=== PATIENT | female | born 1980 | race African-American/Black ===

== ENCOUNTER 2018-05-29 21:51 | Inpatient (IN) ==
[2018-05-29] MEDS ORDERED: hydrALAZINE 20 MG/1 ML VIAL IV STA (22:39)
[2018-05-29] MEDS ORDERED: LABETALOL 20 MG/4 ML SYRINGE IV STA ×2 (22:40→23:27)
[2018-05-29] MEDS ORDERED: LABETALOL 100 MG/20 ML VIAL IV ONE (22:43)
[2018-05-29 22:54] LABS: Basophils # 0.1 10*3/uL (0.0-0.2); Basophils % 0.9 % (0.0-0.8); Eosinophils # 0.3 10*3/uL (0.0-0.87); Hematocrit 40.6 VOL% (35.7-47.0); Hemoglobin 13.5 GM/DL (12.0-16.0); Immature Granulocytes % 0.5 %; Immature Granulocytes Absolute 0.05 #; Lymphocytes # 3.5 10*3/uL (1.4-4.0); Lymphocytes % 32.9 % (21.3-54.2); Mean Corpuscular HGB Conc 33.3 GM/DL (32-36); Mean Corpuscular Hemoglobin 30 PG (27-34); Mean Corpuscular Volume 91.2 FL (87-102); Mean Platelet Volume 11.8 FL (9.6-12.0); Monocytes # 1.1 10*3/uL (0.11-0.8); Monocytes % 10.5 % (1.7-12.7); Neutrophils # 5.5 10*3/uL (1.4-7.4); Neutrophils % 52.2 % (38.7-73.9); Platelet Count 212 T/CUMM (130-400); Red Blood Count 4.45 MC/CUMM (3.8-5.5); White Blood Count 10.5 T/CUMM (4-12)
[2018-05-29 23:07] LABS: PT Patient Result 10.6 SECS
[2018-05-29 23:12] LABS: Albumin 3.7 G/DL (3.4-5.0); Bilirubin,Total 0.6 MG/DL (0.2-1.0); Calcium 8.6 MG/DL (8.5-10.1); Osmolality,Calculated 281.3 MOS/KG (273-304); Potassium 3.1 MMOL/L (3.5-5.1); Total Protein 7.6 G/DL (6.4-8.3)
[2018-05-29] MEDS ORDERED: ONDANSETRON 4 MG/2 ML VIAL IV STA (23:29)
[2018-05-29] MEDS ORDERED: MORPHINE 4 MG/1 ML VIAL IV STA (23:29)
[2018-05-30] MEDS ORDERED: niCARdipine 25 MG/10 ML VIAL IV ONE (00:05)
[2018-05-30] MEDS: niCARdipine INJ 25 MG in SODIUM CHLORIDE 0.9% 240 ML IV PRN ×3 (00:25→06:57)
[2018-05-30] MEDS ORDERED: ONDANSETRON 4 MG/2 ML VIAL IV PRN (01:15)
[2018-05-30] MEDS ORDERED: FUROSEMIDE 40 MG/4 ML VIAL IV STA (01:37)
[2018-05-30 04:25] LABS: Basophils # 0.1 10*3/uL (0.0-0.2); Basophils % 0.5 % (0.0-0.8); Eosinophils % 0.3 % (0.00-10.9); Hematocrit 42.1 VOL% (35.7-47.0); Hemoglobin 13.8 GM/DL (12.0-16.0); Immature Granulocytes % 0.4 %; Immature Granulocytes Absolute 0.04 #; Lymphocytes # 1.8 10*3/uL (1.4-4.0); Lymphocytes % 17.1 % (21.3-54.2); Mean Corpuscular HGB Conc 32.8 GM/DL (32-36); Mean Corpuscular Hemoglobin 30 PG (27-34); Mean Corpuscular Volume 92.7 FL (87-102); Mean Platelet Volume 11.7 FL (9.6-12.0); Monocytes # 0.5 10*3/uL (0.11-0.8); Monocytes % 4.9 % (1.7-12.7); Neutrophils # 8.3 10*3/uL (1.4-7.4); Neutrophils % 76.8 % (38.7-73.9); Platelet Count 202 T/CUMM (130-400); Red Blood Count 4.54 MC/CUMM (3.8-5.5); White Blood Count 10.8 T/CUMM (4-12)
[2018-05-30 04:42] LABS: Calcium 8.5 MG/DL (8.5-10.1); Osmolality,Calculated 282.5 MOS/KG (273-304); Potassium 3.5 MMOL/L (3.5-5.1)
[2018-05-30] MEDS ORDERED: LABETALOL 200 MG TABLET PO SCH (09:00)
[2018-05-30] MEDS ORDERED: FUROSEMIDE 40 MG TABLET PO SCH (09:00)
[2018-05-30] MEDS ORDERED: POTASSIUM CHLORIDE 10 MEQ TABLET PO SCH (09:00)
[2018-05-30] MEDS ORDERED: hydrALAZINE 25 MG TABLET PO SCH (09:00)
[2018-05-30] MEDS: POTASSIUM CHLORIDE 20 MEQ TABLET PO SCH (09:26)
[2018-05-30] MEDS: PANTOPRAZOLE 40 MG TABLET PO SCH (09:27)
[2018-05-30] MEDS: amLODIPine 10 MG TABLET PO SCH (09:27)
[2018-05-30] MEDS: ISOSORBIDE MONONITRATE 30 MG TABLET PO SCH (09:28)
[2018-05-30] MEDS: FUROSEMIDE 40 MG/4 ML VIAL IV SCH (09:28)
[2018-05-30] MEDS: OXYMETAZOLINE 0.05% NASAL SPRAY 15 ML BOTTLE BOTH NARES PRN ×2 (11:53→20:20)
[2018-05-30] MEDS: CARVEDILOL 3.125 MG TABLET PO SCH ×2 (15:56→20:20)
[2018-05-30] MEDS: MUPIROCIN 2% OINT 22 GM TUBE TOP SCH (20:20)
[2018-05-30] MEDS ORDERED: hydrALAZINE 20 MG/1 ML VIAL IV PRN (21:54)
[2018-05-30] MEDS: CARVEDILOL 25 MG TABLET PO SCH (22:13)
[2018-05-31] MEDS ORDERED: cloNIDine 0.1 MG TABLET PO PRN (02:20)
[2018-05-31 04:27] LABS: Calcium 8.1 MG/DL (8.5-10.1); Osmolality,Calculated 277.7 MOS/KG (273-304); Potassium 3.7 MMOL/L (3.5-5.1)
[2018-05-31] MEDS: amLODIPine 10 MG TABLET PO SCH (08:49)
[2018-05-31] MEDS: CARVEDILOL 25 MG TABLET PO SCH ×2 (08:49→21:43)
[2018-05-31] MEDS: PANTOPRAZOLE 40 MG TABLET PO SCH (08:50)
[2018-05-31] MEDS: POTASSIUM CHLORIDE 20 MEQ TABLET PO SCH (08:51)
[2018-05-31] MEDS: ISOSORBIDE MONONITRATE 30 MG TABLET PO SCH (08:51)
[2018-05-31] MEDS: MUPIROCIN 2% OINT 22 GM TUBE TOP SCH ×2 (08:55→21:43)
[2018-05-31] MEDS: FUROSEMIDE 40 MG/4 ML VIAL IV SCH (08:56)
[2018-05-31] MEDS ORDERED: ALBUTEROL/IPRATROPIUM 3 ML NEB RESP TX PRN (16:38)
[2018-06-01 05:27] LABS: Basophils # 0.1 10*3/uL (0.0-0.2); Basophils % 0.5 % (0.0-0.8); Eosinophils # 0.3 10*3/uL (0.0-0.87); Eosinophils % 2.5 % (0.00-10.9); Hematocrit 36.1 VOL% (35.7-47.0); Hemoglobin 11.7 GM/DL (12.0-16.0); Immature Granulocytes % 0.5 %; Immature Granulocytes Absolute 0.05 #; Lymphocytes # 2.7 10*3/uL (1.4-4.0); Lymphocytes % 23.9 % (21.3-54.2); Mean Corpuscular HGB Conc 32.4 GM/DL (32-36); Mean Corpuscular Hemoglobin 31 PG (27-34); Mean Corpuscular Volume 95.5 FL (87-102); Mean Platelet Volume 11.8 FL (9.6-12.0); Monocytes # 0.9 10*3/uL (0.11-0.8); Monocytes % 8.2 % (1.7-12.7); Neutrophils # 7.2 10*3/uL (1.4-7.4); Neutrophils % 64.4 % (38.7-73.9); Platelet Count 184 T/CUMM (130-400); Red Blood Count 3.78 MC/CUMM (3.8-5.5); Red Cell Distribution Width 13.9 % (9.3-17.3); White Blood Count 11.1 T/CUMM (4-12)
[2018-06-01 06:20] LABS: Risk Ratio 4.39; VLDL CHOLESTEROL 28.8 MG/DL
[2018-06-01 06:22] LABS: Calcium 8.4 MG/DL (8.5-10.1)
[2018-06-01 06:23] LABS: Osmolality,Calculated 279.5 MOS/KG (273-304); Potassium 3.1 MMOL/L (3.5-5.1)
[2018-06-01] MEDS: PANTOPRAZOLE 40 MG TABLET PO SCH (09:20)
[2018-06-01] MEDS: ISOSORBIDE MONONITRATE 30 MG TABLET PO SCH (09:20)
[2018-06-01] MEDS: CARVEDILOL 25 MG TABLET PO SCH ×2 (09:20→21:46)
[2018-06-01] MEDS: POTASSIUM CHLORIDE 20 MEQ TABLET PO SCH (09:21)
[2018-06-01] MEDS: MUPIROCIN 2% OINT 22 GM TUBE TOP SCH ×2 (09:21→22:09)
[2018-06-01] MEDS: amLODIPine 10 MG TABLET PO SCH (09:21)
[2018-06-01] MEDS: FUROSEMIDE 40 MG/4 ML VIAL IV SCH (09:21)
[2018-06-01] MEDS: SPIRONOLACTONE 25 MG TABLET PO SCH ×2 (13:32→21:46)
[2018-06-01] MEDS ORDERED: POTASSIUM CHLORIDE 10 MEQ TABLET PO ONE (15:26)
[2018-06-02 05:12] LABS: Basophils # 0.1 10*3/uL (0.0-0.2); Basophils % 0.6 % (0.0-0.8); Eosinophils % 0.3 % (0.00-10.9); Hematocrit 37.1 VOL% (35.7-47.0); Hemoglobin 12.2 GM/DL (12.0-16.0); Immature Granulocytes % 0.5 %; Immature Granulocytes Absolute 0.06 #; Lymphocytes # 2.9 10*3/uL (1.4-4.0); Lymphocytes % 25.6 % (21.3-54.2); Mean Corpuscular HGB Conc 32.9 GM/DL (32-36); Mean Corpuscular Hemoglobin 31 PG (27-34); Mean Corpuscular Volume 93.9 FL (87-102); Mean Platelet Volume 11.6 FL (9.6-12.0); Monocytes % 8.6 % (1.7-12.7); Neutrophils # 7.4 10*3/uL (1.4-7.4); Neutrophils % 64.4 % (38.7-73.9); Platelet Count 193 T/CUMM (130-400); Red Blood Count 3.95 MC/CUMM (3.8-5.5); Red Cell Distribution Width 13.7 % (9.3-17.3); White Blood Count 11.5 T/CUMM (4-12)
[2018-06-02 05:45] LABS: Calcium 8.8 MG/DL (8.5-10.1); Osmolality,Calculated 280.4 MOS/KG (273-304); Potassium 3.4 MMOL/L (3.5-5.1)
[2018-06-02] MEDS: CARVEDILOL 25 MG TABLET PO SCH ×2 (08:42→21:22)
[2018-06-02] MEDS: POTASSIUM CHLORIDE 20 MEQ TABLET PO SCH (08:43)
[2018-06-02] MEDS: PANTOPRAZOLE 40 MG TABLET PO SCH (08:43)
[2018-06-02] MEDS: SPIRONOLACTONE 25 MG TABLET PO SCH ×2 (08:43→21:22)
[2018-06-02] MEDS: amLODIPine 10 MG TABLET PO SCH (08:43)
[2018-06-02] MEDS: FUROSEMIDE 40 MG/4 ML VIAL IV SCH (08:43)
[2018-06-02] MEDS: ISOSORBIDE MONONITRATE 30 MG TABLET PO SCH (08:43)
[2018-06-02] MEDS: MUPIROCIN 2% OINT 22 GM TUBE TOP SCH ×2 (12:33→21:23)
[2018-06-02 13:44] LABS: Apearance,Urine CLEAR (Clear); Bilirubin,Urine Negative (Negative); Blood, Urine Negative (Negative); Glucose,Urine (UA) Negative (Negative); Ketones,Urine Negative (Negative); Mucus,Urine Occasional /LPF (Occasional); Nitrite,Urine Negative (Negative); Protein,Urine Negative; RBC,Urine <1 /HPF (0-4); Squamous Epithelial Cell,Urine Occasional /HPF (0-10); Urine Color Straw (Yellow); Urine Specific Gravity 1.004 (1.001-1.035); Urine Urobilinogen < 2.0 EU/DL (0.2-1.0); WBC,Urine 3 /HPF (0-6)
[2018-06-02] MEDS: cloNIDine 0.1 MG TABLET PO SCH ×2 (14:00→21:22)
[2018-06-02 14:04] LABS: ABG Base Excess 4.4 MMOL/L (-2.5-2.5); ABG HCO3 28.2 MMOL/L (20-26); ABG Oxygen Saturation 94.9 % (95-100); ABG PCO2 38.5 MM HG (35-48); ABG PH 7.472 (7.35-7.45); ABG PO2 71.6 MM HG (80-95); ABG TCO2 24.6 MMOL/L (23-27); Allen Test Positive; Pt O2 Delivery Device Room Air
[2018-06-03 04:30] LABS: Basophils # 0.1 10*3/uL (0.0-0.2); Basophils % 0.6 % (0.0-0.8); Eosinophils # 0.3 10*3/uL (0.0-0.87); Eosinophils % 2.8 % (0.00-10.9); Hematocrit 36.1 VOL% (35.7-47.0); Hemoglobin 11.8 GM/DL (12.0-16.0); Immature Granulocytes % 0.5 %; Immature Granulocytes Absolute 0.05 #; Lymphocytes # 2.4 10*3/uL (1.4-4.0); Lymphocytes % 22.7 % (21.3-54.2); Mean Corpuscular HGB Conc 32.7 GM/DL (32-36); Mean Corpuscular Hemoglobin 30 PG (27-34); Mean Corpuscular Volume 92.1 FL (87-102); Mean Platelet Volume 11.8 FL (9.6-12.0); Monocytes % 9.9 % (1.7-12.7); Neutrophils # 6.7 10*3/uL (1.4-7.4); Neutrophils % 63.5 % (38.7-73.9); Platelet Count 216 T/CUMM (130-400); Red Blood Count 3.92 MC/CUMM (3.8-5.5); Red Cell Distribution Width 13.8 % (9.3-17.3); White Blood Count 10.5 T/CUMM (4-12)
[2018-06-03 04:48] LABS: Calcium 8.2 MG/DL (8.5-10.1); Osmolality,Calculated 282.4 MOS/KG (273-304); Potassium 3.5 MMOL/L (3.5-5.1)
[2018-06-03] MEDS: SPIRONOLACTONE 25 MG TABLET PO SCH ×2 (10:04→21:45)
[2018-06-03] MEDS: ISOSORBIDE MONONITRATE 30 MG TABLET PO SCH (10:04)
[2018-06-03] MEDS: PANTOPRAZOLE 40 MG TABLET PO SCH (10:04)
[2018-06-03] MEDS: CARVEDILOL 25 MG TABLET PO SCH ×2 (10:05→21:45)
[2018-06-03] MEDS: MUPIROCIN 2% OINT 22 GM TUBE TOP SCH ×2 (10:05→21:46)
[2018-06-03] MEDS: cloNIDine 0.1 MG TABLET PO SCH (10:05)
[2018-06-03] MEDS: POTASSIUM CHLORIDE 20 MEQ TABLET PO SCH (10:05)
[2018-06-03] MEDS: FUROSEMIDE 40 MG/4 ML VIAL IV SCH (10:05)
[2018-06-03] MEDS: amLODIPine 10 MG TABLET PO SCH (10:05)
[2018-06-03] MEDS: hydroCHLOROthiazide 25 MG TABLET PO SCH (12:38)
[2018-06-04 03:41] LABS: Basophils # 0.1 10*3/uL (0.0-0.2); Basophils % 0.6 % (0.0-0.8); Eosinophils # 0.2 10*3/uL (0.0-0.87); Eosinophils % 2.4 % (0.00-10.9); Hematocrit 38.2 VOL% (35.7-47.0); Hemoglobin 12.6 GM/DL (12.0-16.0); Immature Granulocytes % 0.5 %; Immature Granulocytes Absolute 0.05 #; Lymphocytes # 2.4 10*3/uL (1.4-4.0); Mean Corpuscular Hemoglobin 30 PG (27-34); Mean Corpuscular Volume 91.2 FL (87-102); Mean Platelet Volume 11.8 FL (9.6-12.0); Monocytes # 0.9 10*3/uL (0.11-0.8); Monocytes % 9.1 % (1.7-12.7); Neutrophils # 6.3 10*3/uL (1.4-7.4); Neutrophils % 63.4 % (38.7-73.9); Platelet Count 236 T/CUMM (130-400); Red Blood Count 4.19 MC/CUMM (3.8-5.5); Red Cell Distribution Width 13.7 % (9.3-17.3); White Blood Count 9.9 T/CUMM (4-12)
[2018-06-04 04:27] LABS: Calcium 8.8 MG/DL (8.5-10.1); Osmolality,Calculated 278.8 MOS/KG (273-304); Potassium 3.9 MMOL/L (3.5-5.1)
[2018-06-04] MEDS: FUROSEMIDE 40 MG TABLET PO SCH (08:53)
[2018-06-04] MEDS: hydroCHLOROthiazide 25 MG TABLET PO SCH (08:53)
[2018-06-04] MEDS: POTASSIUM CHLORIDE 20 MEQ TABLET PO SCH (08:53)
[2018-06-04] MEDS: PANTOPRAZOLE 40 MG TABLET PO SCH (08:53)
[2018-06-04] MEDS: amLODIPine 10 MG TABLET PO SCH (08:53)
[2018-06-04] MEDS: CARVEDILOL 25 MG TABLET PO SCH ×2 (08:53→20:38)
[2018-06-04] MEDS: SPIRONOLACTONE 25 MG TABLET PO SCH ×2 (08:53→20:38)
[2018-06-04] MEDS: MUPIROCIN 2% OINT 22 GM TUBE TOP SCH ×2 (08:57→20:38)
[2018-06-05 05:06] LABS: Bilirubin,Total 0.7 MG/DL (0.2-1.0); Osmolality,Calculated 280.7 MOS/KG (273-304); Potassium 3.6 MMOL/L (3.5-5.1)
[2018-06-05] MEDS: SPIRONOLACTONE 25 MG TABLET PO SCH (09:11)
[2018-06-05] MEDS: hydroCHLOROthiazide 25 MG TABLET PO SCH (09:12)
[2018-06-05] MEDS: CARVEDILOL 25 MG TABLET PO SCH (09:12)
[2018-06-05] MEDS: PANTOPRAZOLE 40 MG TABLET PO SCH (09:12)
[2018-06-05] MEDS: FUROSEMIDE 40 MG TABLET PO SCH (09:12)
[2018-06-05] MEDS: amLODIPine 10 MG TABLET PO SCH (09:12)
[2018-06-05] MEDS: POTASSIUM CHLORIDE 20 MEQ TABLET PO SCH (09:12)
[2018-06-05] MEDS: MUPIROCIN 2% OINT 22 GM TUBE TOP SCH (09:12)
[2018-06-05 11:58] VITALS: BP 123/77
== END 2018-06-05 15:13 | disposition home or self-care (01) | DRG 304 ==
LOC: N.ED 21:51 → SUATTDRO 05-30 01:15 → N.EDINP 05-30 01:15 → N.CC 05-30 02:14 → N.TELEN 05-31 10:52
PROVIDERS: ADMIT Internal Medicine; ATTEND Internal Medicine

== ENCOUNTER 2018-09-20 19:59 | Inpatient (IN) ==
[2018-09-20] MEDS ORDERED: ONDANSETRON 4 MG/2 ML VIAL IV STA (20:52)
[2018-09-20] MEDS ORDERED: methylPREDNISolone SOD SUC 125 MG/2 ML VIAL IV STA (20:52)
[2018-09-20] MEDS ORDERED: cefTRIAXone 1,000 MG in SODIUM CHLORIDE 0.9% 100 ML IV STA (20:52)
[2018-09-20] MEDS ORDERED: ALBUTEROL/IPRATROPIUM 3 ML NEB RESP TX STA (20:52)
[2018-09-20] MEDS ORDERED: hydrALAZINE 20 MG/1 ML VIAL IV STA (21:53)
[2018-09-20] MEDS ORDERED: hydrALAZINE 20 MG/1 ML VIAL ONE (21:53)
[2018-09-20 22:07] LABS: Basophils # 0.1 10*3/uL (0.0-0.2); Basophils % 0.7 % (0.0-0.8); Eosinophils # 0.2 10*3/uL (0.0-0.87); Hematocrit 42.4 VOL% (35.7-47.0); Hemoglobin 13.5 GM/DL (12.0-16.0); Immature Granulocytes % 0.5 %; Immature Granulocytes Absolute 0.05 #; Lymphocytes # 2.8 10*3/uL (1.4-4.0); Mean Corpuscular HGB Conc 31.8 GM/DL (32-36); Mean Corpuscular Hemoglobin 30 PG (27-34); Mean Corpuscular Volume 92.6 FL (87-102); Mean Platelet Volume 11.6 FL (9.6-12.0); Monocytes # 0.9 10*3/uL (0.11-0.8); Monocytes % 9.1 % (1.7-12.7); Neutrophils # 5.5 10*3/uL (1.4-7.4); Neutrophils % 57.7 % (38.7-73.9); Platelet Count 231 T/CUMM (130-400); Red Blood Count 4.58 MC/CUMM (3.8-5.5); Red Cell Distribution Width 14.4 % (9.3-17.3); White Blood Count 9.5 T/CUMM (4-12)
[2018-09-20 22:26] LABS: INR 0.9; PT Patient Result 10.3 SECS
[2018-09-20 22:28] LABS: Alanine Aminotransferase 14 U/L (13-56); Albumin 3.1 G/DL (3.4-5.0); Alkaline Phosphatase 106 U/L (45-117); Aspartate Amino Transferase 11 U/L (0-37); Bilirubin,Total < 0.39 MG/DL (0.2-1.0); Blood Urea Nitrogen 14 MG/DL (7-18); Calcium 8.3 MG/DL (8.5-10.1); Glucose 107 MG/DL (74-106); Osmolality,Calculated 279.4 MOS/KG (273-304); Potassium 3.7 MMOL/L (3.5-5.1); Sodium 140 MMOL/L (136-145); Total Protein 7.5 G/DL (6.4-8.3)
[2018-09-20] MEDS ORDERED: METOPROLOL TARTRATE 5 MG/5 ML VIAL IV STA (23:04)
[2018-09-20] MEDS ORDERED: cloNIDine 0.1 MG TABLET ONE (23:57)
[2018-09-20] MEDS ORDERED: cloNIDine 0.1 MG TABLET PO STA (23:59)
[2018-09-21 00:20] LABS: Barbiturates Screen,Urine Negative (Negative); Benzodiazepines Screen,Urine Negative (Negative); Cannabinoid Screen,Urine Negative (Negative); Opiate Screen,Urine Negative (Negative); Phencyclidine Screen,Urine Negative (Negative)
[2018-09-21 00:24] LABS: Apearance,Urine CLEAR (Clear); Bilirubin,Urine Negative (Negative); Blood, Urine Negative (Negative); Glucose,Urine (UA) 50 mg/dL (Negative); Hyaline Casts,Urine 1 /LPF (0-3); Ketones,Urine Negative (Negative); Mucus,Urine Occasional /LPF (Occasional); Nitrite,Urine Negative (Negative); Protein,Urine Negative; RBC,Urine 1 /HPF (0-4); Squamous Epithelial Cell,Urine Occasional /HPF (0-10); Urine Color Yellow (Yellow); Urine Specific Gravity 1.019 (1.001-1.035); WBC,Urine 1 /HPF (0-6)
[2018-09-21] MEDS ORDERED: niCARdipine INJ 25 MG in SODIUM CHLORIDE 0.9% 240 ML IV PRN (01:35)
[2018-09-21] MEDS ORDERED: niCARdipine 25 MG/10 ML VIAL IV ONE (01:40)
[2018-09-21] MEDS: niCARdipine INJ 25 MG in SODIUM CHLORIDE 0.9% 240 ML IV PRN ×6 (01:49→22:05)
[2018-09-21] MEDS ORDERED: NICOTINE 21 MG/24 HR PATCH TRANSDERM PRN (04:17)
[2018-09-21] MEDS ORDERED: ACETAMINOPHEN 325 MG TABLET PO PRN (04:17)
[2018-09-21] MEDS ORDERED: BISACODYL 5 MG TABLET PO PRN (04:17)
[2018-09-21] MEDS ORDERED: MORPHINE 4 MG/1 ML VIAL IV PRN (04:17)
[2018-09-21] MEDS ORDERED: ONDANSETRON 4 MG/2 ML VIAL IV PRN (04:17)
[2018-09-21] MEDS ORDERED: diphenhydrAMINE CAP 25 MG CAPSULE PO PRN (04:17)
[2018-09-21 04:52] LABS: Risk Ratio 5.06; Thyroid Stimulating Hormone 0.564 uIU/ml (0.358-3.74); VLDL CHOLESTEROL 38.8 MG/DL
[2018-09-21] MEDS ORDERED: PANTOPRAZOLE 40 MG VIAL IV SCH (09:00)
[2018-09-21] MEDS ORDERED: ASPIRIN 325 MG TABLET PO SCH (09:00)
[2018-09-21] MEDS ORDERED: FUROSEMIDE 40 MG/4 ML VIAL IV SCH (09:00)
[2018-09-21] MEDS ORDERED: cloNIDine 0.3 MG/24 HR PATCH TRANSDERM SCH (09:00)
[2018-09-21] MEDS: ASPIRIN CHEW 81 MG TABLET PO SCH (09:10)
[2018-09-21] MEDS: ATORVASTATIN 40 MG TABLET PO SCH (09:10)
[2018-09-21] MEDS: ENOXAPARIN 40 MG/0.4 ML SYRINGE SUBCUT SCH (09:11)
[2018-09-21] MEDS: POTASSIUM CHLORIDE 10 MEQ TABLET PO SCH (14:03)
[2018-09-21] MEDS: amLODIPine 10 MG TABLET PO SCH (14:03)
[2018-09-21] MEDS: CARVEDILOL 25 MG TABLET PO SCH ×2 (14:03→21:39)
[2018-09-21] MEDS: FUROSEMIDE 40 MG TABLET PO SCH (14:03)
[2018-09-22] MEDS: niCARdipine INJ 25 MG in SODIUM CHLORIDE 0.9% 240 ML IV PRN (01:25)
[2018-09-22] MEDS: niCARdipine INJ 50 MG in SODIUM CHLORIDE 0.9% 480 ML IV PRN ×3 (04:45→19:42)
[2018-09-22 05:56] LABS: Basophils # 0.1 10*3/uL (0.0-0.2); Basophils % 0.3 % (0.0-0.8); Eosinophils % 0.2 % (0.00-10.9); Hematocrit 42.5 VOL% (35.7-47.0); Hemoglobin 13.4 GM/DL (12.0-16.0); Immature Granulocytes % 0.7 %; Immature Granulocytes Absolute 0.13 #; Lymphocytes # 3.7 10*3/uL (1.4-4.0); Lymphocytes % 20.7 % (21.3-54.2); Mean Corpuscular HGB Conc 31.5 GM/DL (32-36); Mean Corpuscular Hemoglobin 29 PG (27-34); Mean Corpuscular Volume 91.8 FL (87-102); Monocytes # 1.1 10*3/uL (0.11-0.8); Monocytes % 6.1 % (1.7-12.7); Neutrophils # 12.8 10*3/uL (1.4-7.4); Platelet Count 245 T/CUMM (130-400); Red Blood Count 4.63 MC/CUMM (3.8-5.5); Red Cell Distribution Width 14.6 % (9.3-17.3); White Blood Count 17.8 T/CUMM (4-12)
[2018-09-22 06:18] LABS: Bilirubin,Total 0.5 MG/DL (0.2-1.0); Osmolality,Calculated 281.3 MOS/KG (273-304); Potassium 3.4 MMOL/L (3.5-5.1)
[2018-09-22] MEDS: FUROSEMIDE 40 MG TABLET PO SCH (08:55)
[2018-09-22] MEDS: ENOXAPARIN 40 MG/0.4 ML SYRINGE SUBCUT SCH (08:55)
[2018-09-22] MEDS: CARVEDILOL 25 MG TABLET PO SCH ×2 (08:55→20:57)
[2018-09-22] MEDS: POTASSIUM CHLORIDE 10 MEQ TABLET PO SCH (08:55)
[2018-09-22] MEDS: amLODIPine 10 MG TABLET PO SCH (08:55)
[2018-09-22] MEDS: ASPIRIN CHEW 81 MG TABLET PO SCH (08:56)
[2018-09-22] MEDS: ATORVASTATIN 40 MG TABLET PO SCH (08:56)
[2018-09-22] MEDS: SPIRONOLACTONE 25 MG TABLET PO SCH ×2 (09:01→21:01)
[2018-09-22] MEDS: PANTOPRAZOLE 40 MG TABLET PO SCH (09:01)
[2018-09-22] MEDS: POTASSIUM CHLORIDE 20 MEQ TABLET PO SCH ×3 (09:01→17:57)
[2018-09-23 04:57] LABS: Calcium 8.2 MG/DL (8.5-10.1); Osmolality,Calculated 278.5 MOS/KG (273-304); Potassium 3.9 MMOL/L (3.5-5.1)
[2018-09-23] MEDS: ATORVASTATIN 40 MG TABLET PO SCH (08:14)
[2018-09-23] MEDS: SPIRONOLACTONE 25 MG TABLET PO SCH ×3 (08:14→20:14)
[2018-09-23] MEDS: amLODIPine 10 MG TABLET PO SCH (08:15)
[2018-09-23] MEDS: FUROSEMIDE 40 MG TABLET PO SCH (08:16)
[2018-09-23] MEDS: CARVEDILOL 25 MG TABLET PO SCH ×2 (08:16→20:15)
[2018-09-23] MEDS: PANTOPRAZOLE 40 MG TABLET PO SCH (08:16)
[2018-09-23] MEDS: ASPIRIN CHEW 81 MG TABLET PO SCH (08:16)
[2018-09-23] MEDS: POTASSIUM CHLORIDE 10 MEQ TABLET PO SCH (08:16)
[2018-09-23] MEDS: ENOXAPARIN 40 MG/0.4 ML SYRINGE SUBCUT SCH (08:16)
[2018-09-23] MEDS ORDERED: niCARdipine INJ 50 MG in SODIUM CHLORIDE 0.9% 480 ML IV PRN (16:57)
[2018-09-23] MEDS: hydrALAZINE 20 MG/1 ML VIAL IV PRN (17:12)
[2018-09-24 03:13] LABS: Basophils # 0.1 10*3/uL (0.0-0.2); Basophils % 0.6 % (0.0-0.8); Eosinophils # 0.2 10*3/uL (0.0-0.87); Eosinophils % 2.3 % (0.00-10.9); Hematocrit 42.8 VOL% (35.7-47.0); Hemoglobin 13.7 GM/DL (12.0-16.0); Immature Granulocytes % 0.6 %; Immature Granulocytes Absolute 0.06 #; Lymphocytes % 29.2 % (21.3-54.2); Mean Corpuscular Hemoglobin 29 PG (27-34); Mean Corpuscular Volume 91.8 FL (87-102); Mean Platelet Volume 11.8 FL (9.6-12.0); Monocytes % 10.1 % (1.7-12.7); Neutrophils # 5.9 10*3/uL (1.4-7.4); Neutrophils % 57.2 % (38.7-73.9); Platelet Count 248 T/CUMM (130-400); Red Blood Count 4.66 MC/CUMM (3.8-5.5); Red Cell Distribution Width 14.6 % (9.3-17.3); White Blood Count 10.3 T/CUMM (4-12)
[2018-09-24 03:32] LABS: Calcium 8.1 MG/DL (8.5-10.1); Potassium 3.8 MMOL/L (3.5-5.1)
[2018-09-24] MEDS: hydrALAZINE 20 MG/1 ML VIAL IV PRN (04:26)
[2018-09-24] MEDS: SPIRONOLACTONE 25 MG TABLET PO SCH ×2 (08:27→20:40)
[2018-09-24] MEDS: ATORVASTATIN 40 MG TABLET PO SCH (08:28)
[2018-09-24] MEDS: ASPIRIN CHEW 81 MG TABLET PO SCH (08:28)
[2018-09-24] MEDS: CARVEDILOL 25 MG TABLET PO SCH ×2 (08:29→20:40)
[2018-09-24] MEDS: amLODIPine 10 MG TABLET PO SCH (08:29)
[2018-09-24] MEDS: PANTOPRAZOLE 40 MG TABLET PO SCH (08:30)
[2018-09-24] MEDS: ENOXAPARIN 40 MG/0.4 ML SYRINGE SUBCUT SCH (08:30)
[2018-09-24] MEDS ORDERED: GLUCAGON 1 MG VIAL IM PRN (09:32)
[2018-09-24] MEDS ORDERED: DEXTROSE 50% 25 GM/50 ML VIAL IV PRN (09:32)
[2018-09-24] MEDS: INSULIN LISPRO 100 UNIT/ML SUBCUT SCH ×3 (11:42→20:42)
[2018-09-24] MEDS: metFORMIN 500 MG TABLET PO SCH (16:54)
[2018-09-25 03:23] LABS: Calcium 8.5 MG/DL (8.5-10.1); Osmolality,Calculated 279.8 MOS/KG (273-304); Potassium 3.9 MMOL/L (3.5-5.1)
[2018-09-25] MEDS: INSULIN LISPRO 100 UNIT/ML SUBCUT SCH (07:45)
[2018-09-25] MEDS ORDERED: CLOPIDOGREL 75 MG TABLET PO SCH (09:00)
[2018-09-25] MEDS: metFORMIN 500 MG TABLET PO SCH (09:33)
[2018-09-25] MEDS: ASPIRIN CHEW 81 MG TABLET PO SCH (09:33)
[2018-09-25] MEDS: PANTOPRAZOLE 40 MG TABLET PO SCH (09:33)
[2018-09-25] MEDS: amLODIPine 10 MG TABLET PO SCH (09:33)
[2018-09-25] MEDS: CARVEDILOL 25 MG TABLET PO SCH (09:33)
[2018-09-25] MEDS: SPIRONOLACTONE 25 MG TABLET PO SCH (09:33)
[2018-09-25] MEDS: ATORVASTATIN 40 MG TABLET PO SCH (09:33)
[2018-09-25 11:06] VITALS: BP 148/86
== END 2018-09-25 10:46 | disposition home or self-care (01) | DRG 65 ==
LOC: N.ED 19:59 → N.EDINP 19:59 → N.ICU 09-21 04:36 → SUATTDRO 09-21 08:54 → N.4E 09-24 10:39
PROVIDERS: ADMIT Internal Medicine; ATTEND Internal Medicine Geriatric Medicine

== ENCOUNTER 2018-10-26 19:37 | Inpatient (IN) ==
[2018-10-26 20:07] LABS: Basophils # 0.1 10*3/uL (0.0-0.2); Basophils % 0.7 % (0.0-0.8); Eosinophils # 0.3 10*3/uL (0.0-0.87); Eosinophils % 2.6 % (0.00-10.9); Hematocrit 42.3 VOL% (35.7-47.0); Hemoglobin 13.7 GM/DL (12.0-16.0); Immature Granulocytes % 0.6 %; Immature Granulocytes Absolute 0.06 #; Lymphocytes # 3.1 10*3/uL (1.4-4.0); Lymphocytes % 28.7 % (21.3-54.2); Mean Corpuscular HGB Conc 32.4 GM/DL (32-36); Mean Corpuscular Hemoglobin 30 PG (27-34); Mean Corpuscular Volume 91.6 FL (87-102); Mean Platelet Volume 11.2 FL (9.6-12.0); Monocytes # 0.8 10*3/uL (0.11-0.8); Monocytes % 7.4 % (1.7-12.7); Neutrophils # 6.4 10*3/uL (1.4-7.4); Platelet Count 211 T/CUMM (130-400); Red Blood Count 4.62 MC/CUMM (3.8-5.5); Red Cell Distribution Width 14.6 % (9.3-17.3); White Blood Count 10.7 T/CUMM (4-12)
[2018-10-26 20:22] LABS: INR 0.9; PT Patient Result 10.3 SECS
[2018-10-26 20:33] LABS: Alanine Aminotransferase 15 U/L (13-56); Albumin 3.2 G/DL (3.4-5.0); Alkaline Phosphatase 116 U/L (45-117); Aspartate Amino Transferase 31 U/L (0-37); Bilirubin,Total < 0.39 MG/DL (0.2-1.0); Blood Urea Nitrogen 13 MG/DL (7-18); CKMB % 4.7 %; Calcium 8.3 MG/DL (8.5-10.1); Glucose 182 MG/DL (74-106); Osmolality,Calculated 281.5 MOS/KG (273-304); Potassium 3.4 MMOL/L (3.5-5.1); Sodium 139 MMOL/L (136-145); Total Protein 7.4 G/DL (6.4-8.3)
[2018-10-26] MEDS ORDERED: NITROGLYCERIN 2% OINT 1 INCH/GM PACK TOP STA (21:05)
[2018-10-26] MEDS ORDERED: ONDANSETRON 4 MG/2 ML VIAL IV STA (21:05)
[2018-10-26] MEDS ORDERED: ASPIRIN 325 MG TABLET PO STA (21:05)
[2018-10-26] MEDS ORDERED: MORPHINE 4 MG/1 ML VIAL IV STA (21:05)
[2018-10-26] MEDS ORDERED: ENOXAPARIN 100 MG/ML SYRINGE SUBCUT STA (21:05)
[2018-10-26] MEDS ORDERED: hydrALAZINE 20 MG/1 ML VIAL IV STA (21:05)
[2018-10-26] MEDS ORDERED: MAGNESIUM SULF RIDER 2 GM in PREMIX 1 EACH IV STA (21:19)
[2018-10-26] MEDS ORDERED: LABETALOL 20 MG/4 ML SYRINGE IV ONE ×2 (21:55→21:57)
[2018-10-26 21:59] LABS: Apearance,Urine CLOUDY (Clear); Bilirubin,Urine Negative (Negative); Blood, Urine Negative (Negative); Glucose,Urine (UA) Negative (Negative); Ketones,Urine Negative (Negative); Mucus,Urine Occasional /LPF (Occasional); Nitrite,Urine Negative (Negative); Protein,Urine Negative; RBC,Urine 1 /HPF (0-4); Squamous Epithelial Cell,Urine Occasional /HPF (0-10); Urine Color Yellow (Yellow); Urine Specific Gravity 1.018 (1.001-1.035); Urine Urobilinogen < 2.0 EU/DL (0.2-1.0); WBC,Urine 2 /HPF (0-6)
[2018-10-26] MEDS ORDERED: hydrALAZINE 20 MG/1 ML VIAL IV PRN (22:12)
[2018-10-26] MEDS ORDERED: MORPHINE 4 MG/1 ML VIAL IV PRN (22:12)
[2018-10-26] MEDS ORDERED: DEXTROSE 50% 25 GM/50 ML SYRINGE IV PRN (22:12)
[2018-10-26] MEDS ORDERED: MAGNESIUM SULF RIDER 4 GM in PREMIX 1 EACH IV PRN (22:12)
[2018-10-26] MEDS ORDERED: ONDANSETRON 4 MG/2 ML VIAL IV PRN (22:12)
[2018-10-26] MEDS ORDERED: MAGNESIUM SULF RIDER 2 GM in PREMIX 1 EACH IV PRN (22:12)
[2018-10-26] MEDS ORDERED: GLUCAGON 1 MG VIAL IM PRN (22:12)
[2018-10-26 22:40] LABS: Barbiturates Screen,Urine Negative (Negative); Benzodiazepines Screen,Urine Negative (Negative); Cannabinoid Screen,Urine Negative (Negative); Opiate Screen,Urine Positive (Negative); Phencyclidine Screen,Urine Negative (Negative)
[2018-10-26] MEDS: POTASSIUM CHLORIDE 20 MEQ TABLET PO PRN (23:34)
[2018-10-27] MEDS: INSULIN REGULAR 100 UNIT/ML SUBCUT SCH ×4 (01:54→17:43)
[2018-10-27] MEDS: POTASSIUM CHLORIDE 20 MEQ TABLET PO PRN ×2 (01:55→03:30)
[2018-10-27 04:29] LABS: Basophils # 0.1 10*3/uL (0.0-0.2); Basophils % 0.7 % (0.0-0.8); Eosinophils # 0.3 10*3/uL (0.0-0.87); Eosinophils % 2.8 % (0.00-10.9); Hematocrit 42.1 VOL% (35.7-47.0); Hemoglobin 13.6 GM/DL (12.0-16.0); Immature Granulocytes % 0.4 %; Immature Granulocytes Absolute 0.04 #; Lymphocytes # 3.7 10*3/uL (1.4-4.0); Lymphocytes % 38.2 % (21.3-54.2); Mean Corpuscular HGB Conc 32.3 GM/DL (32-36); Mean Corpuscular Hemoglobin 29 PG (27-34); Mean Corpuscular Volume 90.7 FL (87-102); Monocytes # 0.7 10*3/uL (0.11-0.8); Monocytes % 7.6 % (1.7-12.7); Neutrophils # 4.8 10*3/uL (1.4-7.4); Neutrophils % 50.3 % (38.7-73.9); Platelet Count 205 T/CUMM (130-400); Red Blood Count 4.64 MC/CUMM (3.8-5.5); Red Cell Distribution Width 14.6 % (9.3-17.3); White Blood Count 9.6 T/CUMM (4-12)
[2018-10-27 04:56] LABS: Albumin 3.2 G/DL (3.4-5.0); Bilirubin,Total 0.8 MG/DL (0.2-1.0); Calcium 8.5 MG/DL (8.5-10.1); Osmolality,Calculated 280.3 MOS/KG (273-304); Potassium 3.7 MMOL/L (3.5-5.1); Risk Ratio 4.78; Thyroid Stimulating Hormone 0.82 uIU/ml (0.358-3.74); Total Protein 7.2 G/DL (6.4-8.3); VLDL CHOLESTEROL 31.2 MG/DL
[2018-10-27] MEDS: SODIUM CHLORIDE 0.9% 1,000 ML IV SCH ×2 (05:11→05:12)
[2018-10-27] MEDS ORDERED: ENOXAPARIN 150 MG/ML SYRINGE SUBCUT SCH (09:00)
[2018-10-27] MEDS ORDERED: hydroCHLOROthiazide 25 MG TABLET PO SCH (09:00)
[2018-10-27] MEDS ORDERED: ASPIRIN 325 MG TABLET PO ONE (11:15)
[2018-10-27] MEDS ORDERED: diphenhydrAMINE CAP 25 MG CAPSULE PO ONE (11:15)
[2018-10-27] MEDS ORDERED: DIAZEPAM 5 MG TABLET PO ONE (11:15)
[2018-10-27] MEDS: PANTOPRAZOLE 40 MG TABLET PO SCH (11:54)
[2018-10-27] MEDS: amLODIPine 10 MG TABLET PO SCH (11:54)
[2018-10-27] MEDS: CARVEDILOL 25 MG TABLET PO SCH ×2 (11:54→17:42)
[2018-10-27] MEDS: SPIRONOLACTONE 50 MG TABLET PO SCH ×2 (11:55→21:38)
[2018-10-27] MEDS ORDERED: LOSARTAN 50 MG TABLET PO SCH (14:00)
[2018-10-27] MEDS ORDERED: LIDOCAINE 1% 20 ML VIAL ONE (14:02)
[2018-10-27] MEDS ORDERED: fentaNYL 100 MCG/2 ML VIAL ONE (14:06)
[2018-10-27] MEDS ORDERED: MIDAZOLAM 2 MG/2 ML VIAL ONE (14:06)
[2018-10-27] MEDS ORDERED: NIFEdipine 10 MG CAPSULE PO ONE (14:23)
[2018-10-27] MEDS ORDERED: DEXTROSE 50% 25 GM/50 ML SYRINGE IV PRN (15:19)
[2018-10-27] MEDS ORDERED: GLUCAGON 1 MG VIAL IM PRN (15:19)
[2018-10-27] MEDS: FUROSEMIDE 40 MG TABLET PO SCH (17:41)
[2018-10-27] MEDS: MINOXIDIL 2.5 MG TABLET PO SCH ×2 (17:43→21:38)
[2018-10-27] MEDS ORDERED: diphenhydrAMINE CAP 25 MG CAPSULE PO PRN (17:58)
[2018-10-27] MEDS ORDERED: MAGNESIUM HYDROXIDE SUSP 30 ML UDCUP PO PRN (17:59)
[2018-10-27] MEDS ORDERED: ROSUVASTATIN 10 MG TABLET PO SCH (21:00)
[2018-10-28] MEDS: INSULIN REGULAR 100 UNIT/ML SUBCUT SCH ×3 (01:54→12:33)
[2018-10-28 04:10] LABS: Basophils # 0.1 10*3/uL (0.0-0.2); Basophils % 0.7 % (0.0-0.8); Eosinophils # 0.2 10*3/uL (0.0-0.87); Hematocrit 41.3 VOL% (35.7-47.0); Hemoglobin 12.7 GM/DL (12.0-16.0); Immature Granulocytes % 0.7 %; Immature Granulocytes Absolute 0.06 #; Lymphocytes # 2.3 10*3/uL (1.4-4.0); Mean Corpuscular HGB Conc 30.8 GM/DL (32-36); Mean Corpuscular Hemoglobin 29 PG (27-34); Mean Corpuscular Volume 92.8 FL (87-102); Mean Platelet Volume 11.6 FL (9.6-12.0); Monocytes # 0.6 10*3/uL (0.11-0.8); Monocytes % 7.7 % (1.7-12.7); Neutrophils # 5.1 10*3/uL (1.4-7.4); Neutrophils % 60.9 % (38.7-73.9); Platelet Count 199 T/CUMM (130-400); Red Blood Count 4.45 MC/CUMM (3.8-5.5); White Blood Count 8.3 T/CUMM (4-12)
[2018-10-28 04:38] LABS: Albumin 3.1 G/DL (3.4-5.0); Bilirubin,Total 1.2 MG/DL (0.2-1.0); Calcium 8.2 MG/DL (8.5-10.1); Osmolality,Calculated 283.3 MOS/KG (273-304); Potassium 3.8 MMOL/L (3.5-5.1); Total Protein 6.9 G/DL (6.4-8.3)
[2018-10-28] MEDS: FUROSEMIDE 40 MG TABLET PO SCH (08:33)
[2018-10-28] MEDS: CARVEDILOL 25 MG TABLET PO SCH (08:33)
[2018-10-28] MEDS: SPIRONOLACTONE 50 MG TABLET PO SCH (08:33)
[2018-10-28] MEDS: MINOXIDIL 2.5 MG TABLET PO SCH (08:33)
[2018-10-28] MEDS: PANTOPRAZOLE 40 MG TABLET PO SCH (08:34)
[2018-10-28] MEDS: amLODIPine 10 MG TABLET PO SCH (08:34)
[2018-10-28] MEDS ORDERED: ASPIRIN CHEW 81 MG TABLET PO SCH (09:00)
[2018-10-28 11:46] VITALS: BP 135/72
== END 2018-10-28 13:00 | disposition home or self-care (01) | DRG 281 ==
LOC: N.ED 19:37 → N.EDINP 21:18 → N.TELEN 21:35
PROVIDERS: ADMIT Internal Medicine Cardiovascular Disease; ATTEND Internal Medicine Cardiovascular Disease
PROC: CLCCHCL (ICD-10-PCS; 2018-10-27 14:45)

== ENCOUNTER 2019-03-19 16:27 | Inpatient (IN) ==
[2019-03-19] MEDS ORDERED: FUROSEMIDE 100 MG/10 ML VIAL IV STA (16:48)
[2019-03-19] MEDS ORDERED: ALBUTEROL/IPRATROPIUM 3 ML NEB RESP TX STA (16:48)
[2019-03-19] MEDS ORDERED: ONDANSETRON 4 MG/2 ML VIAL IV STA (16:48)
[2019-03-19] MEDS ORDERED: hydrALAZINE 20 MG/1 ML VIAL IV STA (16:48)
[2019-03-19 17:28] LABS: Basophils # 0.1 10*3/uL (0.0-0.2); Basophils % 0.8 % (0.0-0.8); Eosinophils # 0.1 10*3/uL (0.0-0.87); Eosinophils % 1.7 % (0.00-10.9); Hematocrit 41.2 VOL% (35.7-47.0); Hemoglobin 13.1 GM/DL (12.0-16.0); Immature Granulocytes % 0.6 %; Immature Granulocytes Absolute 0.05 #; Lymphocytes # 2.9 10*3/uL (1.4-4.0); Lymphocytes % 33.8 % (21.3-54.2); Mean Corpuscular HGB Conc 31.8 GM/DL (32-36); Mean Corpuscular Volume 95.8 FL (87-102); Mean Platelet Volume 11.6 FL (9.6-12.0); Monocytes % 7.3 % (1.7-12.7); Neutrophils % 55.8 % (38.7-73.9); Platelet Count 202 T/CUMM (130-400); Red Cell Distribution Width 16.3 % (9.3-17.3); White Blood Count 8.5 T/CUMM (4-12)
[2019-03-19 17:39] LABS: PT Patient Result 10.5 SECS
[2019-03-19 17:51] LABS: Alanine Aminotransferase 17 U/L (13-56); Albumin 3.5 G/DL (3.4-5.0); Alkaline Phosphatase 76 U/L (45-117); Aspartate Amino Transferase 15 U/L (0-37); Blood Urea Nitrogen 23 MG/DL (7-18); Calcium 8.5 MG/DL (8.5-10.1); Glucose 143 MG/DL (74-106); Osmolality,Calculated 284.4 MOS/KG (273-304)
[2019-03-19 17:53] LABS: Troponin I 0.053 NG/ML (0.00-0.045)
[2019-03-19 17:58] LABS: Apearance,Urine Slightly Hazy (Clear); Bilirubin,Urine Negative (Negative); Blood, Urine Negative (Negative); Glucose,Urine (UA) Negative (Negative); Ketones,Urine Negative (Negative); Mucus,Urine Occasional /LPF (Occasional); Nitrite,Urine Negative (Negative); Protein,Urine 100 MG/DL; RBC,Urine 2 /HPF (0-4); Squamous Epithelial Cell,Urine Occasional /HPF (0-10); Urine Color Yellow (Yellow); Urine Urobilinogen < 2.0 EU/DL (0.2-1.0); WBC,Urine 3 /HPF (0-6)
[2019-03-19] MEDS ORDERED: METOPROLOL TARTRATE 5 MG/5 ML VIAL IV ONE (18:15)
[2019-03-19] MEDS ORDERED: METOPROLOL TARTRATE 5 MG/5 ML VIAL IV STA (18:15)
[2019-03-19] MEDS ORDERED: POTASSIUM BICARB EFFERVESCENT 25 MEQ TABLET PO ONE (18:18)
[2019-03-19] MEDS ORDERED: MORPHINE 4 MG/1 ML VIAL IV PRN (18:40)
[2019-03-19] MEDS ORDERED: CARVEDILOL 25 MG TABLET PO SCH (19:00)
[2019-03-19] MEDS ORDERED: FUROSEMIDE 40 MG/4 ML VIAL IV ONE (19:27)
[2019-03-19] MEDS: POTASSIUM CHLORIDE 20 MEQ TABLET PO SCH (20:55)
[2019-03-19] MEDS ORDERED: ENOXAPARIN 40 MG/0.4 ML SYRINGE SUBCUT SCH (21:00)
[2019-03-19] MEDS ORDERED: LOSARTAN 50 MG TABLET PO SCH (21:00)
[2019-03-19] MEDS ORDERED: ROSUVASTATIN 10 MG TABLET PO SCH (21:00)
[2019-03-20 04:21] LABS: Basophils # 0.1 10*3/uL (0.0-0.2); Basophils % 0.8 % (0.0-0.8); Eosinophils # 0.2 10*3/uL (0.0-0.87); Eosinophils % 2.7 % (0.00-10.9); Hematocrit 43.2 VOL% (35.7-47.0); Hemoglobin 13.7 GM/DL (12.0-16.0); Immature Granulocytes % 0.5 %; Immature Granulocytes Absolute 0.04 #; Lymphocytes # 2.6 10*3/uL (1.4-4.0); Lymphocytes % 34.2 % (21.3-54.2); Mean Corpuscular HGB Conc 31.7 GM/DL (32-36); Mean Corpuscular Volume 96.9 FL (87-102); Mean Platelet Volume 11.3 FL (9.6-12.0); Monocytes % 10.1 % (1.7-12.7); Neutrophils % 51.7 % (38.7-73.9); Platelet Count 199 T/CUMM (130-400); Red Blood Count 4.46 MC/CUMM (3.8-5.5); Red Cell Distribution Width 16.4 % (9.3-17.3); White Blood Count 7.7 T/CUMM (4-12)
[2019-03-20 04:35] LABS: Calcium 8.5 MG/DL (8.5-10.1); Osmolality,Calculated 284.4 MOS/KG (273-304)
[2019-03-20] MEDS: amLODIPine 10 MG TABLET PO SCH ×2 (06:32→09:34)
[2019-03-20] MEDS ORDERED: FUROSEMIDE 40 MG/4 ML VIAL IV SCH (08:00)
[2019-03-20] MEDS ORDERED: CARVEDILOL 25 MG TABLET PO SCH (08:00)
[2019-03-20] MEDS ORDERED: ASPIRIN EC 81 MG TABLET PO SCH (09:00)
[2019-03-20] MEDS ORDERED: LOSARTAN 50 MG TABLET PO SCH (09:00)
[2019-03-20] MEDS ORDERED: ISOSORBIDE MONONITRATE 30 MG TABLET PO SCH (09:00)
[2019-03-20] MEDS ORDERED: PANTOPRAZOLE 40 MG TABLET PO SCH (09:00)
[2019-03-20] MEDS: POTASSIUM CHLORIDE 20 MEQ TABLET PO SCH (09:33)
[2019-03-20 12:27] VITALS: BP 103/49
== END 2019-03-20 14:24 | disposition home or self-care (01) | DRG 292 ==
LOC: N.ED 16:27 → N.TELES 18:40
PROVIDERS: ADMIT Hospitalist; ATTEND Hospitalist

== ENCOUNTER 2019-04-17 20:02 | Observation (INO) ==
[2019-04-17] MEDS ORDERED: FUROSEMIDE 40 MG/4 ML VIAL IV STA (20:47)
[2019-04-17 21:01] LABS: Basophils # 0.1 10*3/uL (0.0-0.2); Basophils % 0.7 % (0.0-0.8); Eosinophils # 0.1 10*3/uL (0.0-0.87); Hematocrit 42.3 VOL% (35.7-47.0); Hemoglobin 13.5 GM/DL (12.0-16.0); Immature Granulocytes % 0.4 %; Immature Granulocytes Absolute 0.03 #; Lymphocytes # 2.3 10*3/uL (1.4-4.0); Lymphocytes % 32.1 % (21.3-54.2); Mean Corpuscular HGB Conc 31.9 GM/DL (32-36); Mean Platelet Volume 11.5 FL (9.6-12.0); Monocytes % 7.4 % (1.7-12.7); Neutrophils % 57.4 % (38.7-73.9); Platelet Count 209 T/CUMM (130-400); Red Blood Count 4.36 MC/CUMM (3.8-5.5); Red Cell Distribution Width 15.7 % (9.3-17.3); White Blood Count 7.2 T/CUMM (4-12)
[2019-04-17 21:12] LABS: PT Patient Result 10.6 SECS
[2019-04-17 21:18] LABS: Albumin 3.4 G/DL (3.4-5.0); Bilirubin,Total 0.8 MG/DL (0.2-1.0); Calcium 8.6 MG/DL (8.5-10.1); Osmolality,Calculated 283.3 MOS/KG (273-304); Total Protein 6.9 G/DL (6.4-8.3)
[2019-04-17] MEDS ORDERED: hydrALAZINE 20 MG/1 ML VIAL IV STA (22:27)
[2019-04-17] MEDS ORDERED: MORPHINE 4 MG/1 ML VIAL IV PRN (22:36)
[2019-04-17] MEDS ORDERED: ZALEPLON 5 MG CAPSULE PO PRN (22:36)
[2019-04-17] MEDS ORDERED: guaiFENesin/DM ER 600-30 MG TABLET PO PRN (22:36)
[2019-04-17] MEDS ORDERED: ACETAMINOPHEN 325 MG TABLET PO PRN (22:36)
[2019-04-17] MEDS ORDERED: diphenhydrAMINE CAP 25 MG CAPSULE PO PRN (22:36)
[2019-04-17] MEDS ORDERED: DOCUSATE SODIUM 100 MG CAPSULE PO PRN (22:36)
[2019-04-17] MEDS ORDERED: ONDANSETRON 4 MG/2 ML VIAL IV PRN (22:36)
[2019-04-17] MEDS ORDERED: LABETALOL 20 MG/4 ML SYRINGE IV STA (23:00)
[2019-04-17] MEDS ORDERED: LABETALOL 100 MG/20 ML VIAL IV ONE (23:02)
[2019-04-18] MEDS ORDERED: CARVEDILOL 3.125 MG TABLET PO ONE (00:30)
[2019-04-18] MEDS: hydrALAZINE 20 MG/1 ML VIAL IV PRN ×2 (02:50→11:05)
[2019-04-18 04:53] LABS: Basophils # 0.1 10*3/uL (0.0-0.2); Basophils % 0.9 % (0.0-0.8); Eosinophils # 0.2 10*3/uL (0.0-0.87); Eosinophils % 2.2 % (0.00-10.9); Hematocrit 41.3 VOL% (35.7-47.0); Hemoglobin 13.5 GM/DL (12.0-16.0); Immature Granulocytes % 0.6 %; Immature Granulocytes Absolute 0.05 #; Lymphocytes # 2.9 10*3/uL (1.4-4.0); Lymphocytes % 33.9 % (21.3-54.2); Mean Corpuscular HGB Conc 32.7 GM/DL (32-36); Mean Platelet Volume 11.2 FL (9.6-12.0); Monocytes % 7.4 % (1.7-12.7); Platelet Count 203 T/CUMM (130-400); Red Cell Distribution Width 15.7 % (9.3-17.3); White Blood Count 8.6 T/CUMM (4-12)
[2019-04-18 05:05] LABS: Albumin 3.4 G/DL (3.4-5.0); Bilirubin,Total 0.6 MG/DL (0.2-1.0); Calcium 8.6 MG/DL (8.5-10.1); Osmolality,Calculated 286.1 MOS/KG (273-304); Total Protein 6.9 G/DL (6.4-8.3)
[2019-04-18] MEDS ORDERED: niCARdipine INJ 25 MG in SODIUM CHLORIDE 0.9% 240 ML IV PRN (05:20)
[2019-04-18] MEDS ORDERED: cloNIDine 0.1 MG TABLET ONE (08:33)
[2019-04-18] MEDS ORDERED: DILTIAZEM 25 MG/5 ML VIAL IV ONE (08:37)
[2019-04-18] MEDS ORDERED: niCARdipine 25 MG/10 ML VIAL IV ONE ×2 (08:39→10:59)
[2019-04-18] MEDS: amLODIPine 10 MG TABLET PO SCH (09:00)
[2019-04-18] MEDS: PANTOPRAZOLE 40 MG TABLET PO SCH (09:00)
[2019-04-18] MEDS: ASPIRIN CHEW 81 MG TABLET PO SCH (09:00)
[2019-04-18] MEDS: FUROSEMIDE 40 MG/4 ML VIAL IV SCH ×2 (09:00→16:21)
[2019-04-18] MEDS ORDERED: CARVEDILOL 3.125 MG TABLET ONE (10:43)
[2019-04-18] MEDS: ISOSORBIDE MONONITRATE 30 MG TABLET PO SCH (11:09)
[2019-04-18] MEDS: metFORMIN 500 MG TABLET PO SCH ×2 (11:09→16:20)
[2019-04-18] MEDS: CARVEDILOL 6.25 MG TABLET PO SCH ×2 (11:09→20:42)
[2019-04-18] MEDS: NICOTINE 7 MG/24 HR PATCH TRANSDERM SCH (15:08)
[2019-04-19] MEDS: hydrALAZINE 20 MG/1 ML VIAL IV PRN (03:40)
[2019-04-19 05:02] LABS: Basophils # 0.1 10*3/uL (0.0-0.2); Basophils % 0.7 % (0.0-0.8); Eosinophils # 0.1 10*3/uL (0.0-0.87); Eosinophils % 1.1 % (0.00-10.9); Hematocrit 42.4 VOL% (35.7-47.0); Immature Granulocytes % 0.3 %; Immature Granulocytes Absolute 0.02 #; Lymphocytes # 2.7 10*3/uL (1.4-4.0); Lymphocytes % 35.6 % (21.3-54.2); Mean Corpuscular Volume 95.5 FL (87-102); Mean Platelet Volume 11.8 FL (9.6-12.0); Neutrophils % 52.3 % (38.7-73.9); Platelet Count 209 T/CUMM (130-400); Red Blood Count 4.44 MC/CUMM (3.8-5.5); White Blood Count 7.5 T/CUMM (4-12)
[2019-04-19 05:37] LABS: Calcium 8.7 MG/DL (8.5-10.1)
[2019-04-19 06:17] LABS: Barbiturates Screen,Urine Negative (Negative); Benzodiazepines Screen,Urine Negative (Negative); Cannabinoid Screen,Urine Negative (Negative); Opiate Screen,Urine Negative (Negative); Phencyclidine Screen,Urine Negative (Negative)
[2019-04-19] MEDS: FUROSEMIDE 40 MG/4 ML VIAL IV SCH ×2 (08:36→15:56)
[2019-04-19] MEDS: POTASSIUM CHLORIDE 20 MEQ TABLET PO PRN ×4 (08:36→21:54)
[2019-04-19] MEDS: CARVEDILOL 6.25 MG TABLET PO SCH ×2 (08:38→21:44)
[2019-04-19] MEDS: ASPIRIN CHEW 81 MG TABLET PO SCH (08:39)
[2019-04-19] MEDS: ISOSORBIDE MONONITRATE 30 MG TABLET PO SCH (08:40)
[2019-04-19] MEDS: metFORMIN 500 MG TABLET PO SCH ×4 (08:40→16:09)
[2019-04-19] MEDS: amLODIPine 10 MG TABLET PO SCH (08:41)
[2019-04-19] MEDS: PANTOPRAZOLE 40 MG TABLET PO SCH (08:41)
[2019-04-19] MEDS: NICOTINE 7 MG/24 HR PATCH TRANSDERM SCH (08:45)
[2019-04-19] MEDS ORDERED: FUROSEMIDE 80 MG TABLET PO SCH (16:00)
[2019-04-20 05:15] LABS: Basophils # 0.1 10*3/uL (0.0-0.2); Basophils % 0.7 % (0.0-0.8); Eosinophils % 0.3 % (0.00-10.9); Hematocrit 42.7 VOL% (35.7-47.0); Hemoglobin 13.8 GM/DL (12.0-16.0); Immature Granulocytes % 0.1 %; Immature Granulocytes Absolute 0.01 #; Lymphocytes # 2.4 10*3/uL (1.4-4.0); Lymphocytes % 33.7 % (21.3-54.2); Mean Corpuscular HGB Conc 32.3 GM/DL (32-36); Mean Corpuscular Volume 96.6 FL (87-102); Mean Platelet Volume 11.6 FL (9.6-12.0); Monocytes % 12.2 % (1.7-12.7); Platelet Count 221 T/CUMM (130-400); Red Blood Count 4.42 MC/CUMM (3.8-5.5); Red Cell Distribution Width 16.3 % (9.3-17.3)
[2019-04-20 05:56] LABS: Osmolality,Calculated 284.5 MOS/KG (273-304)
[2019-04-20 06:02] LABS: Osmolality,Calculated 286.4 MOS/KG (273-304)
[2019-04-20] MEDS ORDERED: MAGNESIUM SULF RIDER 2 GM in PREMIX 1 EACH IV PRN (07:30)
[2019-04-20] MEDS ORDERED: MAGNESIUM SULF RIDER 4 GM in PREMIX 1 EACH IV PRN (07:30)
[2019-04-20 08:18] VITALS: BP 158/96
[2019-04-20] MEDS: FUROSEMIDE 40 MG/4 ML VIAL IV SCH (08:34)
[2019-04-20] MEDS: amLODIPine 10 MG TABLET PO SCH (08:35)
[2019-04-20] MEDS: ISOSORBIDE MONONITRATE 30 MG TABLET PO SCH (08:35)
[2019-04-20] MEDS: PANTOPRAZOLE 40 MG TABLET PO SCH (08:35)
[2019-04-20] MEDS: metFORMIN 500 MG TABLET PO SCH (08:35)
[2019-04-20] MEDS: CARVEDILOL 6.25 MG TABLET PO SCH (08:35)
[2019-04-20] MEDS ORDERED: ASPIRIN EC 81 MG TABLET PO SCH (09:00)
[2019-04-20] MEDS: NICOTINE 7 MG/24 HR PATCH TRANSDERM SCH (09:26)
== END 2019-04-20 11:20 | disposition home or self-care (01) ==
LOC: N.EDINP 20:02 → N.ED 20:02 → SUATTDRO 22:36 → N.TELES 04-18 11:52 → UNDODISOB 04-20 11:05
PROVIDERS: ADMIT Internal Medicine; ATTEND Internal Medicine Geriatric Medicine

== ENCOUNTER 2019-05-12 17:55 | Inpatient (IN) ==
[2019-05-12] MEDS ORDERED: hydrALAZINE 20 MG/1 ML VIAL IV STA ×2 (18:51→19:42)
[2019-05-12] MEDS ORDERED: LABETALOL 20 MG/4 ML SYRINGE IV STA ×2 (18:52→19:43)
[2019-05-12 18:59] LABS: Basophils # 0.1 10*3/uL (0.0-0.2); Basophils % 0.7 % (0.0-0.8); Eosinophils % 0.4 % (0.00-10.9); Hematocrit 41.2 VOL% (35.7-47.0); Hemoglobin 13.7 GM/DL (12.0-16.0); Immature Granulocytes % 0.4 %; Immature Granulocytes Absolute 0.03 #; Lymphocytes # 2.2 10*3/uL (1.4-4.0); Lymphocytes % 29.6 % (21.3-54.2); Mean Corpuscular HGB Conc 33.3 GM/DL (32-36); Mean Corpuscular Volume 96.9 FL (87-102); Mean Platelet Volume 11.1 FL (9.6-12.0); Monocytes % 8.8 % (1.7-12.7); Neutrophils % 60.1 % (38.7-73.9); Platelet Count 233 T/CUMM (130-400); Red Blood Count 4.25 MC/CUMM (3.8-5.5); Red Cell Distribution Width 15.2 % (9.3-17.3); White Blood Count 7.3 T/CUMM (4-12)
[2019-05-12] MEDS ORDERED: FUROSEMIDE 40 MG/4 ML VIAL IV STA (19:16)
[2019-05-12 19:17] LABS: PT Patient Result 10.4 SECS (9.6-12.2); Partial Thromboplastin Time 27.1 SECS (20.8-36.0)
[2019-05-12 19:24] LABS: Albumin 3.6 G/DL (3.4-5.0); Bilirubin,Total 0.9 MG/DL (0.2-1.0); Total Protein 7.1 G/DL (6.4-8.3)
[2019-05-12] MEDS ORDERED: MORPHINE 4 MG/1 ML VIAL IV STA (20:40)
[2019-05-12] MEDS ORDERED: ONDANSETRON 4 MG/2 ML VIAL IV STA (20:41)
[2019-05-12] MEDS ORDERED: ACETAMINOPHEN 325 MG TABLET PO PRN (21:50)
[2019-05-12] MEDS ORDERED: MAGNESIUM SULF RIDER 2 GM in PREMIX 1 EACH IV PRN (21:50)
[2019-05-12] MEDS ORDERED: GLUCAGON 1 MG VIAL IM PRN ×2 (21:50)
[2019-05-12] MEDS ORDERED: ONDANSETRON 4 MG/2 ML VIAL IV PRN (21:50)
[2019-05-12] MEDS ORDERED: DEXTROSE 50% 25 GM/50 ML VIAL IV PRN ×2 (21:50)
[2019-05-12] MEDS ORDERED: BISACODYL 5 MG TABLET PO PRN (21:50)
[2019-05-12] MEDS ORDERED: MAGNESIUM SULF RIDER 4 GM in PREMIX 1 EACH IV PRN (21:50)
[2019-05-13] MEDS: ENOXAPARIN 40 MG/0.4 ML SYRINGE SUBCUT SCH ×2 (00:29→22:09)
[2019-05-13] MEDS: cloNIDine 0.1 MG TABLET PO SCH ×2 (00:29→08:24)
[2019-05-13] MEDS: INSULIN REGULAR 100 UNIT/ML SUBCUT SCH ×5 (00:34→20:28)
[2019-05-13] MEDS: POTASSIUM CHLORIDE RIDER 10 MEQ in PREMIX 1 EACH IV PRN ×2 (03:10→06:05)
[2019-05-13 04:12] LABS: Basophils # 0.1 10*3/uL (0.0-0.2); Basophils % 0.7 % (0.0-0.8); Eosinophils % 0.1 % (0.00-10.9); Hematocrit 43.9 VOL% (35.7-47.0); Hemoglobin 14.4 GM/DL (12.0-16.0); Immature Granulocytes % 0.3 %; Immature Granulocytes Absolute 0.02 #; Lymphocytes # 1.6 10*3/uL (1.4-4.0); Lymphocytes % 20.6 % (21.3-54.2); Mean Corpuscular HGB Conc 32.8 GM/DL (32-36); Monocytes % 9.5 % (1.7-12.7); Neutrophils % 68.8 % (38.7-73.9); Platelet Count 241 T/CUMM (130-400); Red Blood Count 4.48 MC/CUMM (3.8-5.5); Red Cell Distribution Width 15.5 % (9.3-17.3); White Blood Count 7.5 T/CUMM (4-12)
[2019-05-13 04:37] LABS: Albumin 3.7 G/DL (3.4-5.0); Bilirubin,Total 0.7 MG/DL (0.2-1.0); Calcium 9.1 MG/DL (8.5-10.1); Osmolality,Calculated 283.3 MOS/KG (273-304); Total Protein 7.7 G/DL (6.4-8.3)
[2019-05-13] MEDS ORDERED: INSULIN REGULAR 100 UNIT/ML SUBCUT SCH (07:30)
[2019-05-13] MEDS: PANTOPRAZOLE 40 MG TABLET PO SCH (08:23)
[2019-05-13] MEDS: CARVEDILOL 25 MG TABLET PO SCH ×2 (08:23→16:28)
[2019-05-13] MEDS: ASPIRIN EC 81 MG TABLET PO SCH (08:23)
[2019-05-13] MEDS: SPIRONOLACTONE 25 MG TABLET PO SCH (08:23)
[2019-05-13] MEDS: amLODIPine 10 MG TABLET PO SCH (08:24)
[2019-05-13] MEDS: FUROSEMIDE 40 MG/4 ML VIAL IV SCH ×2 (08:32→15:03)
[2019-05-13] MEDS ORDERED: ISOSORBIDE MONONITRATE 30 MG TABLET PO SCH (09:00)
[2019-05-13] MEDS: SIMVASTATIN 10 MG TABLET PO SCH (20:28)
[2019-05-14] MEDS: cloNIDine 0.1 MG TABLET PO PRN ×3 (04:52→15:11)
[2019-05-14] MEDS: INSULIN REGULAR 100 UNIT/ML SUBCUT SCH ×4 (08:54→20:37)
[2019-05-14] MEDS: ISOSORBIDE MONONITRATE 30 MG TABLET PO SCH (08:54)
[2019-05-14] MEDS: CARVEDILOL 25 MG TABLET PO SCH ×2 (08:55→17:47)
[2019-05-14] MEDS: FUROSEMIDE 40 MG/4 ML VIAL IV SCH ×2 (08:55→15:11)
[2019-05-14] MEDS: SPIRONOLACTONE 25 MG TABLET PO SCH (08:55)
[2019-05-14] MEDS: amLODIPine 10 MG TABLET PO SCH (08:55)
[2019-05-14] MEDS: PANTOPRAZOLE 40 MG TABLET PO SCH (08:55)
[2019-05-14] MEDS: ASPIRIN EC 81 MG TABLET PO SCH (08:55)
[2019-05-14] MEDS: SIMVASTATIN 10 MG TABLET PO SCH (21:40)
[2019-05-14] MEDS: ENOXAPARIN 40 MG/0.4 ML SYRINGE SUBCUT SCH (21:40)
[2019-05-15] MEDS: INSULIN REGULAR 100 UNIT/ML SUBCUT SCH ×4 (08:19→21:33)
[2019-05-15] MEDS: ASPIRIN EC 81 MG TABLET PO SCH (10:01)
[2019-05-15] MEDS: amLODIPine 10 MG TABLET PO SCH (10:01)
[2019-05-15] MEDS: CARVEDILOL 25 MG TABLET PO SCH ×2 (10:01→18:01)
[2019-05-15] MEDS: SPIRONOLACTONE 25 MG TABLET PO SCH (10:01)
[2019-05-15] MEDS: PANTOPRAZOLE 40 MG TABLET PO SCH (10:01)
[2019-05-15] MEDS: ISOSORBIDE MONONITRATE 30 MG TABLET PO SCH (10:01)
[2019-05-15] MEDS: FUROSEMIDE 40 MG/4 ML VIAL IV SCH ×2 (10:02→15:04)
[2019-05-15 10:30] LABS: Osmolality,Calculated 285.3 MOS/KG (273-304)
[2019-05-15] MEDS: POTASSIUM CHLORIDE 20 MEQ TABLET PO PRN ×3 (12:42→21:33)
[2019-05-15] MEDS: POTASSIUM CHLORIDE RIDER 10 MEQ in PREMIX 1 EACH IV SCH (13:02)
[2019-05-15] MEDS: ENOXAPARIN 40 MG/0.4 ML SYRINGE SUBCUT SCH (21:32)
[2019-05-15] MEDS: SIMVASTATIN 10 MG TABLET PO SCH (21:33)
[2019-05-16 04:30] LABS: Basophils # 0.1 10*3/uL (0.0-0.2); Basophils % 0.7 % (0.0-0.8); Eosinophils % 0.1 % (0.00-10.9); Hematocrit 42.4 VOL% (35.7-47.0); Hemoglobin 13.6 GM/DL (12.0-16.0); Immature Granulocytes % 0.3 %; Immature Granulocytes Absolute 0.02 #; Lymphocytes # 2.3 10*3/uL (1.4-4.0); Lymphocytes % 32.7 % (21.3-54.2); Mean Corpuscular HGB Conc 32.1 GM/DL (32-36); Mean Corpuscular Volume 99.3 FL (87-102); Mean Platelet Volume 10.8 FL (9.6-12.0); Monocytes % 10.4 % (1.7-12.7); Neutrophils % 55.8 % (38.7-73.9); Platelet Count 245 T/CUMM (130-400); Red Blood Count 4.27 MC/CUMM (3.8-5.5); Red Cell Distribution Width 15.2 % (9.3-17.3); White Blood Count 7.1 T/CUMM (4-12)
[2019-05-16 04:59] LABS: Calcium 9.2 MG/DL (8.5-10.1); Osmolality,Calculated 287.1 MOS/KG (273-304)
[2019-05-16] MEDS: INSULIN REGULAR 100 UNIT/ML SUBCUT SCH ×4 (09:29→21:05)
[2019-05-16] MEDS: FUROSEMIDE 40 MG/4 ML VIAL IV SCH ×2 (09:30→16:35)
[2019-05-16] MEDS: amLODIPine 10 MG TABLET PO SCH (09:31)
[2019-05-16] MEDS: ISOSORBIDE MONONITRATE 30 MG TABLET PO SCH (09:31)
[2019-05-16] MEDS: SPIRONOLACTONE 25 MG TABLET PO SCH (09:31)
[2019-05-16] MEDS: ASPIRIN EC 81 MG TABLET PO SCH (09:31)
[2019-05-16] MEDS: CARVEDILOL 25 MG TABLET PO SCH ×2 (09:32→16:35)
[2019-05-16] MEDS: PANTOPRAZOLE 40 MG TABLET PO SCH (09:32)
[2019-05-16] MEDS: SIMVASTATIN 10 MG TABLET PO SCH (21:04)
[2019-05-16] MEDS: ENOXAPARIN 40 MG/0.4 ML SYRINGE SUBCUT SCH (21:06)
[2019-05-17 04:56] LABS: Basophils # 0.1 10*3/uL (0.0-0.2); Basophils % 0.8 % (0.0-0.8); Eosinophils % 0.3 % (0.00-10.9); Hematocrit 42.6 VOL% (35.7-47.0); Hemoglobin 14.1 GM/DL (12.0-16.0); Immature Granulocytes % 0.3 %; Immature Granulocytes Absolute 0.02 #; Lymphocytes # 2.9 10*3/uL (1.4-4.0); Lymphocytes % 38.1 % (21.3-54.2); Mean Corpuscular HGB Conc 33.1 GM/DL (32-36); Mean Corpuscular Volume 98.8 FL (87-102); Mean Platelet Volume 11.5 FL (9.6-12.0); Monocytes % 10.8 % (1.7-12.7); Neutrophils % 49.7 % (38.7-73.9); Platelet Count 246 T/CUMM (130-400); Red Blood Count 4.31 MC/CUMM (3.8-5.5); White Blood Count 7.6 T/CUMM (4-12)
[2019-05-17 05:33] LABS: Calcium 9.3 MG/DL (8.5-10.1); Osmolality,Calculated 286.4 MOS/KG (273-304)
[2019-05-17] MEDS: CARVEDILOL 25 MG TABLET PO SCH (10:23)
[2019-05-17] MEDS: SPIRONOLACTONE 25 MG TABLET PO SCH (10:23)
[2019-05-17] MEDS: amLODIPine 10 MG TABLET PO SCH (10:23)
[2019-05-17] MEDS: ISOSORBIDE MONONITRATE 30 MG TABLET PO SCH (10:23)
[2019-05-17] MEDS: FUROSEMIDE 40 MG/4 ML VIAL IV SCH (10:24)
[2019-05-17] MEDS: INSULIN REGULAR 100 UNIT/ML SUBCUT SCH ×2 (10:25→13:14)
[2019-05-17] MEDS: ASPIRIN EC 81 MG TABLET PO SCH (10:32)
[2019-05-17] MEDS: PANTOPRAZOLE 40 MG TABLET PO SCH (10:32)
[2019-05-17 11:50] VITALS: BP 139/71
[2019-05-18 09:31] LABS: Dopamine, Plasma 35 pg/mL; Epinephrine, Plasma < 25 pg/mL; Norepinephrine, Plasma 350 pg/mL
[2019-05-20 10:40] LABS: Metanephrine, Free < 0.20 nmol/L (<0.50); Normetanephrine, Free 0.47 nmol/L (<0.90)
== END 2019-05-17 15:40 | disposition home or self-care (01) | DRG 291 ==
LOC: N.EDINP 17:55 → N.ED 17:55 → SUATTDRO 21:50 → N.TELEN 23:24 → SUATTDRO 05-15 16:52
PROVIDERS: ADMIT Internal Medicine; ATTEND Internal Medicine

== ENCOUNTER 2019-06-08 19:24 | Inpatient (IN) ==
[2019-06-08] MEDS ORDERED: MORPHINE 4 MG/1 ML VIAL IV STA (22:27)
[2019-06-08] MEDS ORDERED: cefTRIAXone 1,000 MG in SODIUM CHLORIDE 0.9% 100 ML IV STA (22:28)
[2019-06-08] MEDS ORDERED: ONDANSETRON 4 MG/2 ML VIAL ONE (22:48)
[2019-06-08] MEDS ORDERED: ONDANSETRON 4 MG/2 ML VIAL IV STA (22:50)
[2019-06-08] MEDS ORDERED: hydrALAZINE 20 MG/1 ML VIAL IV STA (22:59)
[2019-06-08 23:00] LABS: Basophils # 0.1 10*3/uL (0.0-0.2); Basophils % 0.8 % (0.0-0.8); Eosinophils # 0.2 10*3/uL (0.0-0.87); Hematocrit 36.8 VOL% (35.7-47.0); Hemoglobin 12.3 GM/DL (12.0-16.0); Immature Granulocytes % 0.5 %; Immature Granulocytes Absolute 0.03 #; Lymphocytes % 30.9 % (21.3-54.2); Mean Corpuscular HGB Conc 33.4 GM/DL (32-36); Mean Corpuscular Volume 98.4 FL (87-102); Mean Platelet Volume 12.2 FL (9.6-12.0); Monocytes % 10.1 % (1.7-12.7); Neutrophils % 54.7 % (38.7-73.9); Platelet Count 161 T/CUMM (130-400); Red Blood Count 3.74 MC/CUMM (3.8-5.5); Red Cell Distribution Width 13.5 % (9.3-17.3); White Blood Count 6.4 T/CUMM (4-12)
[2019-06-08] MEDS ORDERED: LABETALOL 20 MG/4 ML SYRINGE IV STA (23:00)
[2019-06-08 23:27] LABS: Albumin 3.3 G/DL (3.4-5.0); Bilirubin,Total 0.5 MG/DL (0.2-1.0); Calcium 8.4 MG/DL (8.5-10.1); Osmolality,Calculated 280.3 MOS/KG (273-304)
[2019-06-08] MEDS ORDERED: niCARdipine 25 MG/10 ML VIAL IV ONE (23:48)
[2019-06-08] MEDS: niCARdipine INJ 25 MG in SODIUM CHLORIDE 0.9% 240 ML IV PRN (23:58)
[2019-06-09] MEDS ORDERED: HYDROmorphone 2 MG/1 ML VIAL IV STA (00:19)
[2019-06-09] MEDS ORDERED: DEXTROSE 50% 25 GM/50 ML VIAL IV PRN (02:14)
[2019-06-09] MEDS ORDERED: GLUCAGON 1 MG VIAL IM PRN (02:14)
[2019-06-09] MEDS ORDERED: DOCUSATE SODIUM 100 MG CAPSULE PO PRN (02:14)
[2019-06-09] MEDS ORDERED: ONDANSETRON 4 MG/2 ML VIAL IV PRN (02:14)
[2019-06-09] MEDS: cloNIDine 0.1 MG TABLET PO SCH ×3 (02:44→20:58)
[2019-06-09] MEDS: carvediloL 25 MG TABLET PO SCH ×3 (02:44→16:15)
[2019-06-09 03:26] LABS: Basophils # 0.1 10*3/uL (0.0-0.2); Eosinophils # 0.1 10*3/uL (0.0-0.87); Hemoglobin 13.7 GM/DL (12.0-16.0); Immature Granulocytes % 0.6 %; Immature Granulocytes Absolute 0.05 #; Lymphocytes # 1.7 10*3/uL (1.4-4.0); Lymphocytes % 21.3 % (21.3-54.2); Mean Corpuscular HGB Conc 32.6 GM/DL (32-36); Mean Corpuscular Volume 98.6 FL (87-102); Mean Platelet Volume 11.3 FL (9.6-12.0); Monocytes % 9.9 % (1.7-12.7); Neutrophils % 66.2 % (38.7-73.9); Platelet Count 202 T/CUMM (130-400); Red Blood Count 4.26 MC/CUMM (3.8-5.5); Red Cell Distribution Width 13.4 % (9.3-17.3); White Blood Count 8.2 T/CUMM (4-12)
[2019-06-09 03:33] LABS: Calcium 8.5 MG/DL (8.5-10.1); Osmolality,Calculated 282.3 MOS/KG (273-304); Risk Ratio 5.1; VLDL CHOLESTEROL 34.6 MG/DL
[2019-06-09] MEDS: niCARdipine INJ 50 MG in SODIUM CHLORIDE 0.9% 480 ML IV PRN ×2 (03:44→08:08)
[2019-06-09] MEDS ORDERED: MAGNESIUM SULF RIDER 4 GM in PREMIX 1 EACH IV PRN (05:52)
[2019-06-09] MEDS: POTASSIUM CHLORIDE RIDER 10 MEQ in PREMIX 1 EACH IV PRN ×2 (06:25→07:23)
[2019-06-09] MEDS: MAGNESIUM SULF RIDER 2 GM in PREMIX 1 EACH IV PRN (06:26)
[2019-06-09] MEDS ORDERED: SPIRONOLACTONE 25 MG TABLET PO SCH (09:00)
[2019-06-09] MEDS: AMOXICILLIN/CLAV 875 MG TABLET PO SCH ×2 (09:43→21:42)
[2019-06-09] MEDS: FUROSEMIDE 40 MG TABLET PO SCH (09:43)
[2019-06-09] MEDS: ISOSORBIDE MONONITRATE 30 MG TABLET PO SCH (09:44)
[2019-06-09] MEDS: ASPIRIN EC 81 MG TABLET PO SCH (09:44)
[2019-06-09] MEDS: amLODIPine 10 MG TABLET PO SCH (09:44)
[2019-06-09] MEDS: POTASSIUM CHLORIDE 20 MEQ TABLET PO PRN ×4 (09:45→22:19)
[2019-06-09] MEDS: ENOXAPARIN 40 MG/0.4 ML SYRINGE SUBCUT SCH (09:47)
[2019-06-09] MEDS ORDERED: MAGNESIUM OXIDE 400 MG TABLET PO SCH (12:30)
[2019-06-09] MEDS ORDERED: POTASSIUM CHLORIDE 10 MEQ TABLET PO SCH (12:30)
[2019-06-09] MEDS: SPIRONOLACTONE 25 MG TABLET PO SCH ×2 (15:58→20:58)
[2019-06-09] MEDS: SIMVASTATIN 10 MG TABLET PO SCH (20:59)
[2019-06-09] MEDS: CALCIUM CARBONATE CHEW 500 MG TABLET PO SCH (20:59)
[2019-06-10] MEDS: niCARdipine INJ 25 MG in SODIUM CHLORIDE 0.9% 240 ML IV PRN (00:04)
[2019-06-10] MEDS: niCARdipine INJ 50 MG in SODIUM CHLORIDE 0.9% 480 ML IV PRN ×2 (03:00→08:49)
[2019-06-10 03:16] LABS: Basophils # 0.1 10*3/uL (0.0-0.2); Basophils % 0.6 % (0.0-0.8); Eosinophils # 0.2 10*3/uL (0.0-0.87); Eosinophils % 1.8 % (0.00-10.9); Hematocrit 40.8 VOL% (35.7-47.0); Hemoglobin 12.9 GM/DL (12.0-16.0); Immature Granulocytes % 0.5 %; Immature Granulocytes Absolute 0.04 #; Lymphocytes # 2.2 10*3/uL (1.4-4.0); Lymphocytes % 26.9 % (21.3-54.2); Mean Corpuscular HGB Conc 31.6 GM/DL (32-36); Mean Corpuscular Volume 100.7 FL (87-102); Mean Platelet Volume 12.2 FL (9.6-12.0); Monocytes % 10.1 % (1.7-12.7); Neutrophils % 60.1 % (38.7-73.9); Platelet Count 133 T/CUMM (130-400); Red Blood Count 4.05 MC/CUMM (3.8-5.5); Red Cell Distribution Width 14.3 % (9.3-17.3); White Blood Count 8.1 T/CUMM (4-12)
[2019-06-10] MEDS: AMOXICILLIN/CLAV 875 MG TABLET PO SCH ×2 (08:14→20:55)
[2019-06-10] MEDS: ASPIRIN EC 81 MG TABLET PO SCH (08:14)
[2019-06-10] MEDS: cloNIDine 0.1 MG TABLET PO SCH ×2 (08:14→20:55)
[2019-06-10] MEDS: SPIRONOLACTONE 25 MG TABLET PO SCH ×2 (08:14→20:55)
[2019-06-10] MEDS: FUROSEMIDE 40 MG TABLET PO SCH (08:15)
[2019-06-10] MEDS: amLODIPine 10 MG TABLET PO SCH (08:15)
[2019-06-10] MEDS: CALCIUM CARBONATE CHEW 500 MG TABLET PO SCH ×2 (08:16→20:55)
[2019-06-10] MEDS: carvediloL 25 MG TABLET PO SCH ×2 (08:16→16:27)
[2019-06-10] MEDS: ENOXAPARIN 40 MG/0.4 ML SYRINGE SUBCUT SCH (08:19)
[2019-06-10] MEDS: ISOSORBIDE MONONITRATE 30 MG TABLET PO SCH (09:03)
[2019-06-10] MEDS: MAGNESIUM SULF RIDER 2 GM in PREMIX 1 EACH IV PRN (09:29)
[2019-06-10] MEDS ORDERED: minoxidiL 2.5 MG TABLET PO ONE (11:33)
[2019-06-10] MEDS: SIMVASTATIN 10 MG TABLET PO SCH (20:56)
[2019-06-10] MEDS ORDERED: TERAZOSIN 1 MG CAPSULE PO SCH (21:00)
[2019-06-11] MEDS: cloNIDine 0.1 MG TABLET PO SCH ×2 (08:17→20:36)
[2019-06-11] MEDS: amLODIPine 10 MG TABLET PO SCH (08:17)
[2019-06-11] MEDS: ASPIRIN EC 81 MG TABLET PO SCH (08:17)
[2019-06-11] MEDS: CALCIUM CARBONATE CHEW 500 MG TABLET PO SCH ×2 (08:17→20:36)
[2019-06-11] MEDS: SPIRONOLACTONE 25 MG TABLET PO SCH ×2 (08:17→20:36)
[2019-06-11] MEDS: ISOSORBIDE MONONITRATE 30 MG TABLET PO SCH (08:17)
[2019-06-11] MEDS: ENOXAPARIN 40 MG/0.4 ML SYRINGE SUBCUT SCH (08:17)
[2019-06-11] MEDS: AMOXICILLIN/CLAV 875 MG TABLET PO SCH ×2 (08:17→20:36)
[2019-06-11] MEDS: FUROSEMIDE 40 MG TABLET PO SCH (08:18)
[2019-06-11] MEDS: carvediloL 25 MG TABLET PO SCH ×2 (08:18→16:26)
[2019-06-11] MEDS: SIMVASTATIN 10 MG TABLET PO SCH (20:36)
[2019-06-11] MEDS ORDERED: TERAZOSIN 5 MG CAPSULE PO SCH (21:00)
[2019-06-12] MEDS: carvediloL 25 MG TABLET PO SCH (07:44)
[2019-06-12 07:56] VITALS: BP 158/97
[2019-06-12] MEDS: FUROSEMIDE 40 MG TABLET PO SCH (09:01)
[2019-06-12] MEDS: ISOSORBIDE MONONITRATE 30 MG TABLET PO SCH (09:01)
[2019-06-12] MEDS: CALCIUM CARBONATE CHEW 500 MG TABLET PO SCH (09:01)
[2019-06-12] MEDS: amLODIPine 10 MG TABLET PO SCH (09:01)
[2019-06-12] MEDS: SPIRONOLACTONE 25 MG TABLET PO SCH (09:01)
[2019-06-12] MEDS: ENOXAPARIN 40 MG/0.4 ML SYRINGE SUBCUT SCH (09:01)
[2019-06-12] MEDS: AMOXICILLIN/CLAV 875 MG TABLET PO SCH (09:01)
[2019-06-12] MEDS: ASPIRIN EC 81 MG TABLET PO SCH (09:01)
[2019-06-12] MEDS: cloNIDine 0.1 MG TABLET PO SCH (09:01)
[2019-06-12] MEDS ORDERED: TERAZOSIN 10 MG CAPSULE PO SCH (21:00)
== END 2019-06-12 14:37 | disposition home or self-care (01) | DRG 305 ==
LOC: N.EDINP 19:24 → N.ED 19:24 → N.ICU 06-09 01:49 → SUATTDRO 06-09 13:22 → N.TELES 06-10 17:01
PROVIDERS: ADMIT Family Medicine; ATTEND Hospitalist

== ENCOUNTER 2019-08-14 19:19 | Observation (INO) ==
[2019-08-14] MEDS ORDERED: ASPIRIN CHEW 81 MG TABLET PO STA (19:28)
[2019-08-14 19:54] LABS: Basophils # 0.1 10*3/uL (0.0-0.2); Basophils % 0.7 % (0.0-0.8); Eosinophils # 0.3 10*3/uL (0.0-0.87); Eosinophils % 2.8 % (0.00-10.9); Hematocrit 45.6 VOL% (35.7-47.0); Hemoglobin 14.4 GM/DL (12.0-16.0); Immature Granulocytes % 0.7 %; Immature Granulocytes Absolute 0.08 #; Lymphocytes # 3.2 10*3/uL (1.4-4.0); Lymphocytes % 29.9 % (21.3-54.2); Mean Corpuscular HGB Conc 31.6 GM/DL (32-36); Mean Corpuscular Volume 100.2 FL (87-102); Mean Platelet Volume 10.9 FL (9.6-12.0); Monocytes % 7.2 % (1.7-12.7); Neutrophils % 58.7 % (38.7-73.9); Platelet Count 272 T/CUMM (130-400); Red Blood Count 4.55 MC/CUMM (3.8-5.5); Red Cell Distribution Width 13.7 % (9.3-17.3); White Blood Count 10.7 T/CUMM (4-12)
[2019-08-14 20:14] LABS: Alanine Aminotransferase 14 U/L (13-56); Albumin 3.3 G/DL (3.4-5.0); Alkaline Phosphatase 94 U/L (45-117); Aspartate Amino Transferase 13 U/L (0-37); Bilirubin,Total < 0.39 MG/DL (0.2-1.0); Blood Urea Nitrogen 16 MG/DL (7-18); Calcium 8.6 MG/DL (8.5-10.1); Estimated Glom Filtration Rate 115 ML/MIN; Glucose 135 MG/DL (74-106); Osmolality,Calculated 285.1 MOS/KG (273-304); Total Protein 7.4 G/DL (6.4-8.3); Troponin I 0.024 NG/ML (0.00-0.045)
[2019-08-14] MEDS ORDERED: ENOXAPARIN 40 MG/0.4 ML SYRINGE SUBCUT SCH (21:00)
[2019-08-14] MEDS ORDERED: hydrALAZINE 20 MG/1 ML VIAL IV STA (21:05)
[2019-08-14] MEDS ORDERED: NITROGLYCERIN 2% OINT 1 INCH/GM PACK TOP STA (21:05)
[2019-08-14 21:06] LABS: Risk Ratio 4.68; VLDL CHOLESTEROL 48.2 MG/DL
[2019-08-14] MEDS ORDERED: NITROGLYCERIN 2% OINT 1 INCH/GM PACK TOP ONE (21:06)
[2019-08-14] MEDS ORDERED: hydrALAZINE 20 MG/1 ML VIAL ONE (21:06)
[2019-08-14] MEDS ORDERED: hydrALAZINE 20 MG/1 ML VIAL IV PRN (22:20)
[2019-08-15] MEDS: NITROGLYCERIN 2% OINT 1 INCH/GM PACK TOP SCH ×2 (00:17→05:36)
[2019-08-15] MEDS ORDERED: POTASSIUM CHLORIDE 20 MEQ TABLET PO PRN (07:42)
[2019-08-15 07:52] VITALS: BP 146/78
[2019-08-15] MEDS ORDERED: SPIRONOLACTONE 25 MG TABLET PO SCH (09:30)
[2019-08-15] MEDS ORDERED: amLODIPine 10 MG TABLET PO SCH (09:30)
[2019-08-15] MEDS ORDERED: cloNIDine 0.1 MG TABLET PO SCH (09:30)
[2019-08-15] MEDS ORDERED: ISOSORBIDE MONONITRATE 30 MG TABLET PO SCH (09:30)
[2019-08-15] MEDS ORDERED: carvediloL 25 MG TABLET PO SCH (09:30)
[2019-08-15] MEDS ORDERED: ASPIRIN EC 81 MG TABLET PO SCH (09:30)
[2019-08-15] MEDS ORDERED: SIMVASTATIN 10 MG TABLET PO SCH (21:00)
== END 2019-08-15 14:40 | disposition home or self-care (01) ==
LOC: N.ED 19:19 → N.EDINP 19:19 → N.2W 21:26
PROVIDERS: ADMIT Internal Medicine; ATTEND Internal Medicine

== ENCOUNTER 2019-11-09 22:03 | Inpatient (IN) ==
[2019-11-09] MEDS ORDERED: NITROGLYCERIN 2% OINT 1 INCH/GM PACK TOP STA (22:41)
[2019-11-09] MEDS ORDERED: ONDANSETRON 4 MG/2 ML VIAL IV STA (22:41)
[2019-11-09] MEDS ORDERED: FUROSEMIDE 40 MG/4 ML VIAL IV STA (22:41)
[2019-11-09] MEDS ORDERED: METOPROLOL TARTRATE 5 MG/5 ML VIAL IV STA (22:41)
[2019-11-09] MEDS ORDERED: ASPIRIN 325 MG TABLET PO STA (22:41)
[2019-11-09 23:49] LABS: Basophils # 0.1 10*3/uL (0.0-0.2); Basophils % 0.7 % (0.0-0.8); Eosinophils # 0.3 10*3/uL (0.0-0.87); Eosinophils % 3.4 % (0.00-10.9); Hemoglobin 14.2 GM/DL (12.0-16.0); Immature Granulocytes % 0.4 %; Immature Granulocytes Absolute 0.03 #; Lymphocytes # 3.1 10*3/uL (1.4-4.0); Lymphocytes % 36.1 % (21.3-54.2); Mean Corpuscular HGB Conc 31.6 GM/DL (32-36); Mean Corpuscular Volume 99.6 FL (87-102); Mean Platelet Volume 11.2 FL (9.6-12.0); Monocytes % 7.2 % (1.7-12.7); Neutrophils % 52.2 % (38.7-73.9); Platelet Count 222 T/CUMM (130-400); Red Blood Count 4.52 MC/CUMM (3.8-5.5); Red Cell Distribution Width 15.8 % (9.3-17.3); White Blood Count 8.5 T/CUMM (4-12)
[2019-11-09] MEDS ORDERED: hydrALAZINE 20 MG/1 ML VIAL IV STA (23:54)
[2019-11-10 00:02] LABS: PT Patient Result 10.5 SECS (9.6-12.2)
[2019-11-10 00:06] LABS: Apearance,Urine Slightly Hazy (Clear); Bacteria,Urine Occasional /HPF (Few); Bilirubin,Urine Negative (Negative); Blood, Urine Small mg/dL (Negative); Glucose,Urine (UA) Negative (Negative); Ketones,Urine Negative (Negative); Mucus,Urine Occasional /LPF (Occasional); Nitrite,Urine Negative (Negative); Protein,Urine 30 MG/DL; RBC,Urine 1 /HPF (0-4); Squamous Epithelial Cell,Urine Occasional /HPF (0-10); Urine Color Yellow (Yellow); Urine Specific Gravity 1.023 (1.001-1.035); Urine Urobilinogen < 2.0 EU/DL (0.2-1.0); WBC,Urine 2 /HPF (0-6)
[2019-11-10 00:16] LABS: Barbiturates Screen,Urine Negative (Negative); Benzodiazepines Screen,Urine Negative (Negative); Cannabinoid Screen,Urine Negative (Negative); Opiate Screen,Urine Negative (Negative); Phencyclidine Screen,Urine Negative (Negative)
[2019-11-10 01:03] LABS: Albumin 2.9 G/DL (3.4-5.0); Bilirubin,Total 0.5 MG/DL (0.2-1.0); Calcium 7.4 MG/DL (8.5-10.1); Osmolality,Calculated 281.4 MOS/KG (273-304); Total Protein 6.4 G/DL (6.4-8.3)
[2019-11-10 01:04] LABS: Troponin I 0.136 NG/ML (0.00-0.045)
[2019-11-10] MEDS: niCARdipine INJ 25 MG in SODIUM CHLORIDE 0.9% 240 ML IV PRN ×3 (02:20→09:36)
[2019-11-10] MEDS ORDERED: NICOTINE 21 MG/24 HR PATCH TRANSDERM PRN (03:47)
[2019-11-10] MEDS ORDERED: ALBUTEROL 2.5 MG/3 ML NEB RESP TX PRN (03:47)
[2019-11-10] MEDS ORDERED: MAGNESIUM SULF RIDER 2 GM in PREMIX 1 EACH IV PRN (03:47)
[2019-11-10] MEDS ORDERED: DOCUSATE SODIUM 100 MG CAPSULE PO PRN (03:47)
[2019-11-10] MEDS ORDERED: ACETAMINOPHEN 325 MG TABLET PO PRN (03:47)
[2019-11-10] MEDS ORDERED: DEXTROSE 50% 25 GM/50 ML SYRINGE IV PRN (03:47)
[2019-11-10] MEDS ORDERED: MAGNESIUM SULF RIDER 4 GM in PREMIX 1 EACH IV PRN (03:47)
[2019-11-10] MEDS ORDERED: ONDANSETRON 4 MG/2 ML VIAL IV PRN (03:47)
[2019-11-10] MEDS ORDERED: NITROGLYCERIN SL 0.4 MG TABLET SL PRN (03:47)
[2019-11-10] MEDS ORDERED: GLUCAGON 1 MG VIAL IM PRN (03:47)
[2019-11-10] MEDS ORDERED: cloNIDine 0.1 MG TABLET PO SCH (03:47)
[2019-11-10] MEDS ORDERED: DEXTROSE 10% 250 ML BAG IV PRN (04:11)
[2019-11-10] MEDS: carvediloL 25 MG TABLET PO SCH ×3 (04:14→16:26)
[2019-11-10 06:02] LABS: Calcium 8.1 MG/DL (8.5-10.1); Osmolality,Calculated 279.5 MOS/KG (273-304)
[2019-11-10 06:14] LABS: Thyroid Stimulating Hormone 0.415 uIU/ml (0.358-3.74)
[2019-11-10] MEDS: ENOXAPARIN 40 MG/0.4 ML SYRINGE SUBCUT SCH (06:35)
[2019-11-10 06:53] LABS: Basophils # 0.1 10*3/uL (0.0-0.2); Basophils % 0.7 % (0.0-0.8); Eosinophils # 0.3 10*3/uL (0.0-0.87); Eosinophils % 2.7 % (0.00-10.9); Hematocrit 42.7 VOL% (35.7-47.0); Hemoglobin 14.1 GM/DL (12.0-16.0); Immature Granulocytes % 0.5 %; Immature Granulocytes Absolute 0.05 #; Lymphocytes # 3.3 10*3/uL (1.4-4.0); Lymphocytes % 31.6 % (21.3-54.2); Mean Corpuscular Volume 95.5 FL (87-102); Mean Platelet Volume 11.6 FL (9.6-12.0); Monocytes % 7.4 % (1.7-12.7); Neutrophils % 57.1 % (38.7-73.9); Platelet Count 251 T/CUMM (130-400); Red Blood Count 4.47 MC/CUMM (3.8-5.5); Red Cell Distribution Width 15.9 % (9.3-17.3); White Blood Count 10.3 T/CUMM (4-12)
[2019-11-10] MEDS: INSULIN REGULAR 100 UNIT/ML SUBCUT SCH ×4 (08:04→21:36)
[2019-11-10] MEDS: ASPIRIN EC 81 MG TABLET PO SCH (08:59)
[2019-11-10] MEDS: FUROSEMIDE 40 MG/4 ML VIAL IV SCH ×2 (08:59→15:15)
[2019-11-10] MEDS: amLODIPine 10 MG TABLET PO SCH (08:59)
[2019-11-10] MEDS: POTASSIUM CHLORIDE 20 MEQ TABLET PO PRN ×2 (08:59→11:10)
[2019-11-10] MEDS: hydrALAZINE 20 MG/1 ML VIAL IV PRN (10:15)
[2019-11-10] MEDS: SIMVASTATIN 10 MG TABLET PO SCH (21:36)
[2019-11-11] MEDS: hydrALAZINE 20 MG/1 ML VIAL IV PRN ×3 (05:10→21:45)
[2019-11-11] MEDS: ENOXAPARIN 40 MG/0.4 ML SYRINGE SUBCUT SCH (05:50)
[2019-11-11] MEDS: FUROSEMIDE 40 MG/4 ML VIAL IV SCH ×2 (07:50→15:03)
[2019-11-11] MEDS: carvediloL 25 MG TABLET PO SCH ×2 (07:50→16:43)
[2019-11-11] MEDS: INSULIN REGULAR 100 UNIT/ML SUBCUT SCH ×4 (07:50→21:35)
[2019-11-11] MEDS: ASPIRIN EC 81 MG TABLET PO SCH (08:04)
[2019-11-11] MEDS: amLODIPine 10 MG TABLET PO SCH (08:04)
[2019-11-11] MEDS: SIMVASTATIN 10 MG TABLET PO SCH (21:50)
[2019-11-12 04:55] LABS: Calcium 8.9 MG/DL (8.5-10.1); Osmolality,Calculated 269.4 MOS/KG (273-304)
[2019-11-12] MEDS: ENOXAPARIN 40 MG/0.4 ML SYRINGE SUBCUT SCH (06:12)
[2019-11-12 06:51] LABS: Basophils % 0.6 % (0.0-0.8); Eosinophils # 0.1 10*3/uL (0.0-0.87); Eosinophils % 1.7 % (0.00-10.9); Hematocrit 41.3 VOL% (35.7-47.0); Hemoglobin 13.1 GM/DL (12.0-16.0); Immature Granulocytes % 0.3 %; Immature Granulocytes Absolute 0.02 #; Lymphocytes # 2.4 10*3/uL (1.4-4.0); Lymphocytes % 36.3 % (21.3-54.2); Mean Corpuscular HGB Conc 31.7 GM/DL (32-36); Mean Corpuscular Volume 98.8 FL (87-102); Mean Platelet Volume 10.3 FL (9.6-12.0); Monocytes % 9.8 % (1.7-12.7); Neutrophils % 51.3 % (38.7-73.9); Platelet Count 259 T/CUMM (130-400); Red Blood Count 4.18 MC/CUMM (3.8-5.5); Red Cell Distribution Width 15.7 % (9.3-17.3); White Blood Count 6.6 T/CUMM (4-12)
[2019-11-12] MEDS: hydrALAZINE 20 MG/1 ML VIAL IV PRN ×2 (07:15→15:45)
[2019-11-12] MEDS: FUROSEMIDE 40 MG/4 ML VIAL IV SCH ×2 (07:16→15:20)
[2019-11-12] MEDS: carvediloL 25 MG TABLET PO SCH ×2 (07:45→16:00)
[2019-11-12] MEDS: POTASSIUM CHLORIDE 20 MEQ TABLET PO PRN (07:46)
[2019-11-12] MEDS: INSULIN REGULAR 100 UNIT/ML SUBCUT SCH ×4 (07:56→21:18)
[2019-11-12] MEDS: amLODIPine 10 MG TABLET PO SCH (08:03)
[2019-11-12] MEDS: ASPIRIN EC 81 MG TABLET PO SCH (08:03)
[2019-11-12] MEDS: SPIRONOLACTONE 25 MG TABLET PO SCH (08:11)
[2019-11-12] MEDS: SIMVASTATIN 10 MG TABLET PO SCH (21:17)
[2019-11-13 05:32] LABS: Basophils # 0.1 10*3/uL (0.0-0.2); Basophils % 0.7 % (0.0-0.8); Eosinophils # 0.2 10*3/uL (0.0-0.87); Eosinophils % 2.2 % (0.00-10.9); Hematocrit 40.5 VOL% (35.7-47.0); Hemoglobin 13.2 GM/DL (12.0-16.0); Immature Granulocytes % 0.1 %; Immature Granulocytes Absolute 0.01 #; Lymphocytes # 2.7 10*3/uL (1.4-4.0); Lymphocytes % 38.8 % (21.3-54.2); Mean Corpuscular HGB Conc 32.6 GM/DL (32-36); Mean Corpuscular Volume 96.4 FL (87-102); Mean Platelet Volume 11.5 FL (9.6-12.0); Monocytes % 13.3 % (1.7-12.7); Neutrophils % 44.9 % (38.7-73.9); Platelet Count 259 T/CUMM (130-400); Red Cell Distribution Width 15.6 % (9.3-17.3); White Blood Count 6.8 T/CUMM (4-12)
[2019-11-13 05:52] LABS: Osmolality,Calculated 278.7 MOS/KG (273-304)
[2019-11-13] MEDS: INSULIN REGULAR 100 UNIT/ML SUBCUT SCH ×2 (09:24→12:26)
[2019-11-13] MEDS: FUROSEMIDE 40 MG/4 ML VIAL IV SCH (09:25)
[2019-11-13] MEDS: carvediloL 25 MG TABLET PO SCH (09:25)
[2019-11-13] MEDS: POTASSIUM CHLORIDE 20 MEQ TABLET PO PRN ×2 (09:25→12:11)
[2019-11-13] MEDS: ASPIRIN EC 81 MG TABLET PO SCH (09:25)
[2019-11-13] MEDS: amLODIPine 10 MG TABLET PO SCH (09:25)
[2019-11-13] MEDS: SPIRONOLACTONE 25 MG TABLET PO SCH (09:25)
[2019-11-13] MEDS: ENOXAPARIN 40 MG/0.4 ML SYRINGE SUBCUT SCH (09:26)
[2019-11-13] MEDS ORDERED: CLINDAMYCIN 300 MG CAPSULE PO ONE (11:13)
[2019-11-13] MEDS ORDERED: FUROSEMIDE 40 MG TABLET PO SCH ×2 (11:17→16:00)
[2019-11-13] MEDS ORDERED: FUROSEMIDE 40 MG TABLET PO ONE (11:24)
[2019-11-13 12:08] VITALS: BP 128/78
== END 2019-11-13 13:19 | disposition home or self-care (01) | DRG 304 ==
LOC: N.EDINP 22:03 → N.ED 22:03 → SUATTDRO 11-10 02:15 → N.EDINP 11-10 03:09 → SUATTDRO 11-10 03:18 → N.ICU 11-10 03:55 → N.TELES 11-12 17:25
PROVIDERS: ADMIT Internal Medicine; ATTEND Internal Medicine

== ENCOUNTER 2020-01-01 11:58 | Inpatient (IN) ==
[2020-01-01] MEDS ORDERED: FUROSEMIDE 100 MG/10 ML VIAL IV STA (12:31)
[2020-01-01] MEDS ORDERED: ALBUTEROL/IPRATROPIUM 3 ML NEB RESP TX STA (12:31)
[2020-01-01] MEDS ORDERED: ASPIRIN 325 MG TABLET PO STA (12:31)
[2020-01-01] MEDS ORDERED: hydrALAZINE 20 MG/1 ML VIAL IV STA (12:31)
[2020-01-01] MEDS ORDERED: NITROGLYCERIN 2% OINT 1 INCH/GM PACK TOP STA (12:31)
[2020-01-01] MEDS ORDERED: methylPREDNISolone SOD SUC 125 MG/2 ML VIAL IV STA (12:31)
[2020-01-01] MEDS ORDERED: MORPHINE 4 MG/1 ML VIAL IV STA (12:31)
[2020-01-01] MEDS ORDERED: ONDANSETRON 4 MG/2 ML VIAL IV STA (12:31)
[2020-01-01 12:56] LABS: Basophils # 0.1 10*3/uL (0.0-0.2); Basophils % 1.1 % (0.0-0.8); Hematocrit 46.3 VOL% (35.7-47.0); Hemoglobin 15.1 GM/DL (12.0-16.0); Immature Granulocytes % 0.2 %; Immature Granulocytes Absolute 0.01 #; Lymphocytes # 2.4 10*3/uL (1.4-4.0); Lymphocytes % 37.7 % (21.3-54.2); Mean Corpuscular HGB Conc 32.6 GM/DL (32-36); Mean Corpuscular Volume 96.9 FL (87-102); Mean Platelet Volume 10.4 FL (9.6-12.0); Monocytes % 7.8 % (1.7-12.7); Neutrophils % 53.2 % (38.7-73.9); Platelet Count 267 T/CUMM (130-400); Red Blood Count 4.78 MC/CUMM (3.8-5.5); White Blood Count 6.4 T/CUMM (4-12)
[2020-01-01 13:07] LABS: INR 1.1; PT Patient Result 11.7 SECS (9.8-11.9)
[2020-01-01 13:16] LABS: Albumin 3.6 G/DL (3.4-5.0); Bilirubin,Total 0.7 MG/DL (0.2-1.0); Calcium 9.1 MG/DL (8.5-10.1); Osmolality,Calculated 282.4 MOS/KG (273-304); Total Protein 7.6 G/DL (6.4-8.3)
[2020-01-01 13:36] LABS: Barbiturates Screen,Urine Negative (Negative); Benzodiazepines Screen,Urine Negative (Negative); Cannabinoid Screen,Urine Negative (Negative); Opiate Screen,Urine Negative (Negative); Phencyclidine Screen,Urine Negative (Negative)
[2020-01-01 13:38] LABS: Apearance,Urine CLEAR (Clear); Bacteria,Urine Occasional /HPF (Few); Bilirubin,Urine Negative (Negative); Blood, Urine Negative (Negative); Glucose,Urine (UA) 50 mg/dL (Negative); Ketones,Urine Negative (Negative); Mucus,Urine Occasional /LPF (Occasional); Nitrite,Urine Negative (Negative); Protein,Urine 100 MG/DL; Squamous Epithelial Cell,Urine Occasional /HPF (0-10); Urine Color Yellow (Yellow); Urine Specific Gravity 1.029 (1.001-1.035); Urine Urobilinogen < 2.0 EU/DL (0.2-1.0)
[2020-01-01] MEDS ORDERED: niCARdipine 25 MG/10 ML VIAL IV ONE (13:45)
[2020-01-01] MEDS: niCARdipine INJ 50 MG in SODIUM CHLORIDE 0.9% 230 ML IV PRN (14:00)
[2020-01-01] MEDS ORDERED: ONDANSETRON 4 MG/2 ML VIAL IV PRN (14:13)
[2020-01-01] MEDS ORDERED: ACETAMINOPHEN 325 MG TABLET PO PRN (14:13)
[2020-01-01] MEDS ORDERED: GLUCAGON 1 MG VIAL IM PRN (15:22)
[2020-01-01] MEDS ORDERED: DEXTROSE 10% 250 ML BAG IV PRN (15:22)
[2020-01-01] MEDS ORDERED: ASPIRIN EC 81 MG TABLET PO SCH (15:30)
[2020-01-01] MEDS ORDERED: cloNIDine 0.1 MG TABLET PO SCH (15:30)
[2020-01-01] MEDS: INSULIN REGULAR 100 UNIT/ML SUBCUT SCH ×2 (16:10→20:34)
[2020-01-01] MEDS: cloNIDine 0.1 MG TABLET PO PRN (16:10)
[2020-01-01] MEDS: ENOXAPARIN 40 MG/0.4 ML SYRINGE SUBCUT SCH (16:10)
[2020-01-01] MEDS: NICOTINE 21 MG/24 HR PATCH TRANSDERM PRN (16:11)
[2020-01-01] MEDS: carvediloL 25 MG TABLET PO SCH ×2 (16:11→20:34)
[2020-01-01] MEDS: ASPIRIN EC 325 MG TABLET PO SCH (16:12)
[2020-01-01] MEDS: ATORVASTATIN 40 MG TABLET PO SCH (20:38)
[2020-01-02] MEDS: cloNIDine 0.1 MG TABLET PO PRN (04:05)
[2020-01-02] MEDS: niCARdipine INJ 50 MG in SODIUM CHLORIDE 0.9% 230 ML IV PRN (07:17)
[2020-01-02 07:43] LABS: Osmolality,Calculated 286.5 MOS/KG (273-304)
[2020-01-02 07:46] LABS: Risk Ratio 5.04; VLDL CHOLESTEROL 47.6 MG/DL
[2020-01-02] MEDS: INSULIN REGULAR 100 UNIT/ML SUBCUT SCH ×4 (08:27→21:08)
[2020-01-02] MEDS: NICOTINE 21 MG/24 HR PATCH TRANSDERM PRN (08:28)
[2020-01-02] MEDS: ASPIRIN EC 325 MG TABLET PO SCH (08:29)
[2020-01-02] MEDS: PANTOPRAZOLE 40 MG TABLET PO SCH (08:29)
[2020-01-02] MEDS: amLODIPine 10 MG TABLET PO SCH (08:29)
[2020-01-02] MEDS: FUROSEMIDE 40 MG TABLET PO SCH (08:29)
[2020-01-02] MEDS: carvediloL 25 MG TABLET PO SCH ×2 (08:29→21:07)
[2020-01-02] MEDS ORDERED: SPIRONOLACTONE 25 MG TABLET PO SCH (09:00)
[2020-01-02] MEDS ORDERED: cloNIDine 0.1 MG TABLET PO PRN (12:07)
[2020-01-02] MEDS: ENOXAPARIN 40 MG/0.4 ML SYRINGE SUBCUT SCH (16:16)
[2020-01-02] MEDS: ATORVASTATIN 40 MG TABLET PO SCH (21:08)
[2020-01-03 06:19] LABS: Calcium 9.3 MG/DL (8.5-10.1); Osmolality,Calculated 285.5 MOS/KG (273-304)
[2020-01-03] MEDS: INSULIN REGULAR 100 UNIT/ML SUBCUT SCH ×4 (09:13→21:27)
[2020-01-03] MEDS: carvediloL 25 MG TABLET PO SCH ×2 (09:38→21:27)
[2020-01-03] MEDS: PANTOPRAZOLE 40 MG TABLET PO SCH (09:38)
[2020-01-03] MEDS: ASPIRIN EC 325 MG TABLET PO SCH (09:38)
[2020-01-03] MEDS: FUROSEMIDE 40 MG TABLET PO SCH (09:38)
[2020-01-03] MEDS: amLODIPine 10 MG TABLET PO SCH (09:38)
[2020-01-03] MEDS ORDERED: hydrALAZINE 20 MG/1 ML VIAL IV PRN (11:48)
[2020-01-03] MEDS: ENOXAPARIN 40 MG/0.4 ML SYRINGE SUBCUT SCH (16:11)
[2020-01-03] MEDS: ATORVASTATIN 40 MG TABLET PO SCH (21:27)
[2020-01-04] MEDS: INSULIN REGULAR 100 UNIT/ML SUBCUT SCH (07:51)
[2020-01-04 08:47] VITALS: BP 168/102
[2020-01-04] MEDS: carvediloL 25 MG TABLET PO SCH (09:31)
[2020-01-04] MEDS: FUROSEMIDE 40 MG TABLET PO SCH (09:31)
[2020-01-04] MEDS: PANTOPRAZOLE 40 MG TABLET PO SCH (09:31)
[2020-01-04] MEDS: ASPIRIN EC 325 MG TABLET PO SCH (09:31)
== END 2020-01-04 11:21 | disposition home health service (06) | DRG 65 ==
LOC: EDUNIT# → EDBD → N.EDINP 11:58 → N.ED 11:58 → N.ICU 15:06 → SUATTDRO 01-02 09:09 → N.TELEN 01-02 13:34
PROVIDERS: ADMIT Internal Medicine; ATTEND Internal Medicine